=== PATIENT | male | born 1945 | race Caucasian/White ===

== ENCOUNTER 2021-06-25 16:23 | Inpatient (IN) | payer OTHER, MEDICARE ==
[~2021-06-25] VITALS: Ht 180.3 cm; Wt 100.2 kg
[~2021-06-25 16:23] MED LIST: ALBU2.5V12 NEB; AMIO200T27 PO; APIX5TAB3 PO; ASPI-1265 PO; ATOR40TA7 PO; CARB1DRO18 OP; CLON-567 PO; CYAN-51 PO; DOCU-148 PO; FLUT1DIS INH; ISOS60TA71 PO; LACT1CAP65 PO; LAMO150T6 PO; LEVE10006 PO; LEVO75TA7 PO; LOP12.5T PO; MEMA5TAB42 PO; NITR0.4T51 SL; OMEG1CAP2 PO; PROP20TA6 PO; SERT-153 PO; VIT1CAPS46 PO
[2021-06-25] MEDS ORDERED: normal saline 1000ML IV soln IVB ONE (16:45)
[2021-06-25 17:02] LABS: BASOPHILS % (AUTO) 0.3 % (0-1); EOSINOPHILS # (AUTO) 0.2 X10'3 (0-0.9); EOSINOPHILS % (AUTO) 1.2 % (0-6); HEMOGLOBIN 8.7 g/dl (14.0-17.9); LYMPHOCYTES # (AUTO) 1.1 X10'3 (1.1-4.8); LYMPHOCYTES % (AUTO) 8.6 % (21-51); MEAN CORPUSCULAR HEMOGLOBIN 26.6 PG (27.0-31.0); MEAN CORPUSCULAR HGB CONC 32.4 g/dL (33.0-36.5); MEAN CORPUSCULAR VOLUME 82.3 FL (78-98); MONOCYTES # (AUTO) 1.1 X10'3 (0-0.9); MONOCYTES % (AUTO) 8.5 % (2-12); NEUTROPHILS # (AUTO) 10.6 X10'3 (1.8-7.7); NEUTROPHILS % (AUTO) 81.4 % (42-75); PLATELET COUNT 313 X10'3 (140-440); RED BLOOD COUNT 3.28 X10'6 (4.70-6.10); RED CELL DISTRIBUTION WIDTH 16.3 % (11.5-14.5)
[2021-06-25 17:20] LABS: ALANINE AMINOTRANSFERASE 14 U/L (12-78); ALBUMIN 3.2 G/DL (3.4-5.0); ALBUMIN/GLOBULIN RATIO 0.8 (1.1-1.5); ALKALINE PHOSPHATASE 89 IU/L (46-116); ANION GAP 10 (8-16); ASPARTATE AMINO TRANSFERASE 11 U/L (10-37); BILIRUBIN,TOTAL 0.5 MG/DL (0.1-1.0); BLOOD UREA NITROGEN 21 MG/DL (7-18); BUN/CREATININE RATIO 15.3 (5.4-32.0); CALCIUM 8.9 MG/DL (8.5-10.1); CHLORIDE 103 MMOL/L (99-107); CREATININE 1.37 MG/DL (0.60-1.10); GLUCOSE 115 MG/DL (70-104); SODIUM 140 MMOL/L (135-145); TOTAL CARBON DIOXIDE 26.6 MMOL/L (24-32); TOTAL PROTEIN 7.1 G/DL (6.4-8.2); eGFR 50 ML/MIN
[2021-06-25 17:25] LABS: CLARITY,URINE SLIGHTLY CLOUDY (Clear); COLOR,URINE YELLOW (Yellow); GLUCOSE, URINE NEGATIVE (Neg); KETONES,URINE NEGATIVE (Neg); LEUKOCYTE ESTERASE ,URINE NEGATIVE (Neg); NITRITES, URINE NEGATIVE (Neg); OCCULT BLOOD,URINE NEGATIVE (Neg); PH,URINE 5.5 (4.8-8.0); PROTEIN,URINE TRACE mg/dl (Neg); UROBILINOGEN,URINE 0.2 E.U/dL (0.2-1.0)
[2021-06-25 17:27] LABS: MAGNESIUM 2.5 MG/DL (1.5-2.4)
[2021-06-25 17:28] LABS: UA COLLECTION TYPE STRAIGHT CATH
[2021-06-25 17:43] LABS: BACTERIA,URINE NONE SEEN /HPF (Neg); CAL OXALATE CRYSTALS FEW /HPF (NEGATIVE); MUCUS STRANDS FEW /LPF (Neg); RBC,URINE 0-2 /HPF (0-2); SQUAMOUS EPITHELIAL CELL,UR FEW /LPF (FEW); WBC,URINE 0-4 /HPF (0-4)
--- NOTE | 2021-06-25 18:15 | NUR ---
to ct scan via gurney with computer science instructor
[2021-06-25] MEDS ORDERED: CefTRIAXone 2gm/NS 100ml IVPB 100 ML IV ONE (19:40)
[2021-06-25] MEDS ORDERED: CefTRIAXone 2gm/D5W 50ml BAG 50 ML IV ONE (19:40)
[2021-06-25] MEDS ORDERED: temazepam 15mg capsule PO PRN (21:00)
[2021-06-25] MEDS ORDERED: HYDROcodone/acetaminophen 5mg/325mg tablet PO PRN (21:25)
[2021-06-25] MEDS ORDERED: magnesium hydroxide 30ml (MOM) UD suspension PO PRN (21:25)
[2021-06-25] MEDS ORDERED: morphine 2 MG/ML inj. syringe IV PRN (21:25)
[2021-06-25] MEDS ORDERED: ondansetron/PF 4mg/2ml inj IV PRN (21:25)
[2021-06-25] MEDS ORDERED: diphenhydrAMINE 25mg capsule PO PRN (21:25)
[2021-06-25] MEDS ORDERED: HYDROcodone/acetaminophen 10/325mg tab PO PRN (21:25)
[2021-06-25] MEDS ORDERED: ondansetron 4mg rapidly disintigrating tab PO PRN (21:25)
[2021-06-25] MEDS ORDERED: mag hydrox/Alum hydrox/simeth 30ml oral suspension PO PRN (21:25)
[2021-06-25] MEDS ORDERED: diphenhydrAMINE 50 mg/ml inj IV PRN (21:25)
[2021-06-25] MEDS ORDERED: acetaminophen 325mg tablet PO PRN ×2 (21:25)
[2021-06-25] MEDS: normal saline 1000ml 1,000 ML IV SCH (21:25)
[2021-06-25] MEDS ORDERED: bisacodyl 10mg suppository rectal RC PRN (21:25)
[2021-06-25 21:54] LABS: HEMOGLOBIN A1C 5.4 % (4.5-6.2)
[2021-06-25 21:57] LABS: CREATINE KINASE 38 U/L (39-308); LIPASE < 50 U/L (73-393); PHOSPHORUS 3.2 MG/DL (2.3-4.5)
[2021-06-25 22:14] LABS: APTT 32 SECONDS (22-32)
[2021-06-26] VITALS (8 sets, daily range): BP systolic 152–192; BP diastolic 62–92
[2021-06-26] MEDS: morphine 2 MG/ML inj. syringe IV PRN ×3 (05:29→22:25)
--- NOTE | 2021-06-26 05:33 | NUR ---
Patient passed swallow screening, advanced diet to heart healthy.
[2021-06-26 07:00] LABS: BASOPHILS % (AUTO) 0.3 % (0-1); EOSINOPHILS # (AUTO) 0.2 X10'3 (0-0.9); EOSINOPHILS % (AUTO) 1.3 % (0-6); HEMATOCRIT 27.8 % (42.0-52.0); HEMOGLOBIN 8.9 g/dl (14.0-17.9); LYMPHOCYTES % (AUTO) 7.7 % (21-51); MEAN CORPUSCULAR HEMOGLOBIN 26.2 PG (27.0-31.0); MEAN CORPUSCULAR HGB CONC 32.1 g/dL (33.0-36.5); MEAN CORPUSCULAR VOLUME 81.5 FL (78-98); MEAN PLATELET VOLUME 7.1 FL (7.4-10.4); MONOCYTES % (AUTO) 7.9 % (2-12); NEUTROPHILS # (AUTO) 10.2 X10'3 (1.8-7.7); NEUTROPHILS % (AUTO) 82.8 % (42-75); PLATELET COUNT 306 X10'3 (140-440); RED BLOOD COUNT 3.41 X10'6 (4.70-6.10); RED CELL DISTRIBUTION WIDTH 16.5 % (11.5-14.5); WHITE BLOOD COUNT 12.4 X10'3 (4.5-11.0)
[2021-06-26 07:08] LABS: ALANINE AMINOTRANSFERASE 18 U/L (12-78); ALBUMIN 3.2 G/DL (3.4-5.0); ALBUMIN/GLOBULIN RATIO 0.8 (1.1-1.5); ALKALINE PHOSPHATASE 90 IU/L (46-116); ANION GAP 7 (8-16); ASPARTATE AMINO TRANSFERASE 13 U/L (10-37); BILIRUBIN,TOTAL 0.5 MG/DL (0.1-1.0); BLOOD UREA NITROGEN 17 MG/DL (7-18); BUN/CREATININE RATIO 13.8 (5.4-32.0); CALCIUM 8.6 MG/DL (8.5-10.1); CHLORIDE 108 MMOL/L (99-107); CHOL/HDL RATIO 3.8 (0.00-4.99); CHOLESTEROL 169 MG/DL (0-200); CREATININE 1.23 MG/DL (0.60-1.10); GLUCOSE 109 MG/DL (70-104); HDL CHOLESTEROL 44 MG/DL (35-60); LDL CHOLESTEROL 100 MG/DL (50-100); SODIUM 143 MMOL/L (135-145); TOTAL PROTEIN 7.1 G/DL (6.4-8.2); TRIGLYCERIDES 123 MG/DL (20-135); eGFR 57 ML/MIN
--- NOTE | 2021-06-26 07:30 | NUR ---
Message: [phone]. Patient has elevated BP. Can you please complete med rec? Valarie PARRISH [phone]
[2021-06-26] MEDS ORDERED: docusate sod 100mg capsule PO SCH (08:00)
[2021-06-26] MEDS: pantoprazole 40mg Tablet.DR PO SCH (09:57)
--- NOTE | 2021-06-26 10:07 | NUR ---
Message: [phone]. Patient has elevated BP. Can you please complete med rec? Valarie PARRISH [id number]
[2021-06-26] MEDS ORDERED: magnesium 4gm in 100ml NS 100 ML IV PRN (10:15)
[2021-06-26] MEDS ORDERED: potassium CL 10mEq/100ml bag 100 ML IV PRN (10:15)
[2021-06-26] MEDS ORDERED: nitroGLYCERIN 0.4mg SUBLingual tab SL PRN (10:15)
[2021-06-26] MEDS ORDERED: clonazePAM 0.5mg tablet PO PRN (10:15)
[2021-06-26] MEDS ORDERED: potassium Cl 20 mEq SR tablet PO PRN ×2 (10:15)
[2021-06-26] MEDS ORDERED: magnesium Cl slow-release 64mg tablet PO PRN (10:15)
[2021-06-26] MEDS ORDERED: hydrALAZINE 20mg/ml inj. IV PRN (10:15)
[2021-06-26] MEDS ORDERED: ipratropium/albuterol 3ml nebule NEB PRN (10:20)
--- NOTE | 2021-06-26 10:54 | NUR ---
Spoke to over the phone, she is requesting patient medication for tremors and seizures be given now. Message sent to pharmacy to change administration time.
[2021-06-26] MEDS: lamoTRIgine 100mg tablet PO SCH ×3 (11:09→20:17)
[2021-06-26] MEDS: budesonide 0.5mg/2ml UD nebule IH SCH ×2 (11:10→19:59)
[2021-06-26] MEDS: albuterol 2.5 MG/3 ML nebule NEB SCH ×4 (11:10→23:40)
[2021-06-26] MEDS: atorvastatin 20mg tablet PO SCH (11:43)
[2021-06-26] MEDS: OMEGA-3/DHA/EPA/FISH OIL 1 EACH CAPSULE.DR PO SCH (11:43)
[2021-06-26] MEDS: isosorbide mononitrate 30mg tab.SR.24H PO SCH (11:43)
[2021-06-26] MEDS: memantine 5mg tablet PO SCH ×2 (11:43→20:18)
[2021-06-26] MEDS: metoprolol tartrate 25mg tablet PO SCH ×2 (11:44→20:18)
[2021-06-26] MEDS: levetiracetam 250mg tablet PO SCH ×2 (11:44→20:18)
[2021-06-26] MEDS: sertraline 50mg tablet PO SCH (11:44)
[2021-06-26] MEDS: ascorbic acid 500mg tablet PO SCH (11:44)
[2021-06-26] MEDS: cyanocobalamin 500mcg tablet PO SCH (11:44)
[2021-06-26] MEDS: aspirin 81mg tab.chew PO SCH (11:45)
[2021-06-26] MEDS: apixaban 5mg tablet PO SCH ×2 (11:45→20:18)
[2021-06-26] MEDS: amiodarone 200mg tablet PO SCH (11:45)
--- NOTE | 2021-06-26 12:34 | NUR ---
Spoke to regarding patient's home medications. She requested they be given as soon as possible. They have now been administered. Tried calling to inform her, line was busy.
--- NOTE | 2021-06-26 14:08 | NUR ---
Attempted to call to complete admission questions, no call back. This is my second time attempting to get a hold of her.
--- NOTE | 2021-06-26 14:16 | NUR ---
RT paged for respiratory treatment.
--- NOTE | 2021-06-26 15:29 | NUR ---
Spoke to [id number] Patsy and updated her on patient's plan of care. She said she will update on care.
--- NOTE | 2021-06-26 17:24 | NUR ---
Message: [phone]. Requested wound care consult. Patient has redness/open area on right 5th toe. Valarie PARRISH [id number]
--- NOTE | 2021-06-26 17:42 | NUR ---
Message: [id number]. Patient is becoming agitated/combative. Can we get Ativan orders? Valarie PARRISH [id number]
[2021-06-26] MEDS ORDERED: haloperidol lactate 5mg/ml inj IM ONE (17:55)
--- NOTE | 2021-06-26 18:03 | NUR ---
Patient was given one time order of IM haldol as he was becoming combative/agitated. He is pulling his leads out and does not allow me to get close to him. and daughter were notified over the phone. Dr. Tucker is aware.
--- NOTE | 2021-06-26 18:33 | NUR ---
Problems reprioritized. Patient report given, questions answered & plan of care reviewed with Nguyen PARRISH.
[2021-06-26] MEDS ORDERED: non-formulary drug (Propranolol Hcl 1 TAB) PO SCH (20:00)
[2021-06-26] MEDS: K and/or MAG REPLACEMENT MC SCH (20:00)
[2021-06-26] MEDS: PEG 400/HYPROMELLOSE/GLYCERIN 15ml bottle EACHEYE SCH (20:17)
[2021-06-26] MEDS: lactobacillus rhamnosus 10,000 MMU CELLS/CAPSULE PO SCH (20:18)
[2021-06-26] MEDS: docusate sod 100mg capsule PO SCH (20:19)
[2021-06-27 01:19] VITALS: BP 138/62
[2021-06-27 02:00] VITALS: BP 150/74
[2021-06-27] MEDS: LORazepam 2 mg/ml vial IV PRN ×2 (06:05→09:49)
[2021-06-27 06:06] LABS: BASOPHILS % (AUTO) 0.4 % (0-1); EOSINOPHILS # (AUTO) 0.1 X10'3 (0-0.9); EOSINOPHILS % (AUTO) 1.2 % (0-6); HEMATOCRIT 26.9 % (42.0-52.0); HEMOGLOBIN 8.6 g/dl (14.0-17.9); LYMPHOCYTES % (AUTO) 9.8 % (21-51); MEAN CORPUSCULAR HEMOGLOBIN 26.1 PG (27.0-31.0); MEAN CORPUSCULAR VOLUME 81.6 FL (78-98); MEAN PLATELET VOLUME 7.1 FL (7.4-10.4); MONOCYTES # (AUTO) 0.8 X10'3 (0-0.9); MONOCYTES % (AUTO) 7.8 % (2-12); NEUTROPHILS # (AUTO) 8.2 X10'3 (1.8-7.7); NEUTROPHILS % (AUTO) 80.8 % (42-75); PLATELET COUNT 295 X10'3 (140-440); RED BLOOD COUNT 3.29 X10'6 (4.70-6.10); RED CELL DISTRIBUTION WIDTH 16.7 % (11.5-14.5); WHITE BLOOD COUNT 10.2 X10'3 (4.5-11.0)
[2021-06-27 06:33] LABS: ALANINE AMINOTRANSFERASE 14 U/L (12-78); ALBUMIN 2.9 G/DL (3.4-5.0); ALBUMIN/GLOBULIN RATIO 0.7 (1.1-1.5); ALKALINE PHOSPHATASE 80 IU/L (46-116); ANION GAP 13 (8-16); ASPARTATE AMINO TRANSFERASE 15 U/L (10-37); BILIRUBIN,TOTAL 0.6 MG/DL (0.1-1.0); BLOOD UREA NITROGEN 18 MG/DL (7-18); BUN/CREATININE RATIO 14.4 (5.4-32.0); CALCIUM 8.6 MG/DL (8.5-10.1); CHLORIDE 105 MMOL/L (99-107); CREATININE 1.25 MG/DL (0.60-1.10); GLUCOSE 108 MG/DL (70-104); MAGNESIUM 2.2 MG/DL (1.5-2.4); PHOSPHORUS 3.2 MG/DL (2.3-4.5); POTASSIUM 3.9 MMOL/L (3.5-5.1); SODIUM 142 MMOL/L (135-145); TOTAL CARBON DIOXIDE 24.2 MMOL/L (24-32); TOTAL PROTEIN 6.9 G/DL (6.4-8.2); eGFR 56 ML/MIN
[2021-06-27] MEDS: K and/or MAG REPLACEMENT MC SCH ×2 (08:00→20:00)
[2021-06-27] MEDS ORDERED: non-formulary drug (Fluticasone/Salmeterol (Advair 100-50 Diskus) 1 PUFFS) INH SCH (08:00)
[2021-06-27] MEDS: OMEGA-3/DHA/EPA/FISH OIL 1 EACH CAPSULE.DR PO SCH (08:07)
[2021-06-27] MEDS: lactobacillus rhamnosus 10,000 MMU CELLS/CAPSULE PO SCH ×2 (08:08→22:13)
[2021-06-27] MEDS: memantine 5mg tablet PO SCH ×2 (08:08→22:14)
[2021-06-27] MEDS: levetiracetam 250mg tablet PO SCH ×2 (08:08→22:14)
[2021-06-27] MEDS: amiodarone 200mg tablet PO SCH (08:09)
[2021-06-27] MEDS: apixaban 5mg tablet PO SCH ×2 (08:09→22:14)
[2021-06-27] MEDS: atorvastatin 20mg tablet PO SCH (08:09)
[2021-06-27] MEDS: isosorbide mononitrate 30mg tab.SR.24H PO SCH (08:09)
[2021-06-27] MEDS: aspirin 81mg tab.chew PO SCH (08:09)
[2021-06-27] MEDS: docusate sod 100mg capsule PO SCH ×2 (08:09→22:13)
[2021-06-27] MEDS: levoTHYROXINE 75mcg tablet PO SCH (08:09)
[2021-06-27] MEDS: ascorbic acid 500mg tablet PO SCH (08:09)
[2021-06-27] MEDS: lamoTRIgine 100mg tablet PO SCH ×2 (08:10→22:14)
[2021-06-27] MEDS: pantoprazole 40mg Tablet.DR PO SCH (08:10)
[2021-06-27] MEDS: cyanocobalamin 500mcg tablet PO SCH (08:10)
[2021-06-27] MEDS: metoprolol tartrate 25mg tablet PO SCH ×2 (08:19→20:00)
[2021-06-27] MEDS: sertraline 50mg tablet PO SCH (08:21)
[2021-06-27] MEDS: PEG 400/HYPROMELLOSE/GLYCERIN 15ml bottle EACHEYE SCH ×2 (08:49→22:14)
[2021-06-27] MEDS: budesonide 0.5mg/2ml UD nebule IH SCH ×2 (10:01→19:14)
[2021-06-27] MEDS: albuterol 2.5 MG/3 ML nebule NEB SCH ×3 (10:01→19:13)
[2021-06-27] MEDS ORDERED: iohexol 350MG/ML 100ml bottle IV ONE (11:33)
--- NOTE | 2021-06-27 13:17 | NUR ---
PRESSURE ULCER EDUCATION: DEFINITION: A pressure ulcer is an area of skin that breaks down when you stay in one position too long. The constant pressure against the skin reduces the blood flow to that area and the affected tissue dies. CAUSES: "Being bedridden or in a wheelchair "Fragile skin "Having a chronic condition, such as diabetes or vascular disease "Inability to move certain parts of your body without assistance "Older age "Incontinence of urine or stool SYMPTOMS: "A reddened area that DOES NOT turn white when pressed on - this can be the beginning of a pressure ulcer "A blister, deep sore or a crater - these can be advanced pressure ulcers FIRST AID: "Relieve the pressure on this area "Keep the area clean and dry "Call your primary doctor if you see any of the above symptoms "DO NOT massage the area "DO NOT use a donut shaped or ring shaped pillow- these actually interfere with the blood flow and cause complications PREVENTION: "Check for pressure ulcers everyday "Change position at least every two hours to relieve pressure "Use items that help relieve pressure- pillows, sheepskin, foam padding, and powders. "Keep skin clean and dry "Eat healthy well balanced meals "Exercise daily IF YOU SEE ANY OF THESE SYMPTOMS WHILE IN THE HOSPITAL - TELL YOUR NURSE IMMEDIATELY. IF YOU SEE ANY OF THESE SYMPTOMS WHILE AT HOME OR HAVE ANY QUESTIONS OR CONCERNS ABOUT PRESSURE ULCERS - CALL YOUR PRIMARY DOCTOR IMMEDIATELY. Addendum: 06/27/21 at 1317 by Maria Eugenia Simpson LVN Amended: Links added.
[2021-06-27 15:00] VITALS: BP 139/52
--- NOTE | 2021-06-27 16:35 | NUR ---
Message: [id number]. Can I get straight cath orders? Patient having trouble voiding, bladder scan is 350 ml. Valarie PARRISH [phone]
[2021-06-27 18:00] VITALS: BP 142/67
--- NOTE | 2021-06-27 18:41 | NUR ---
Problems reprioritized. Patient report given, questions answered & plan of care reviewed with Nguyen PARRISH.
[2021-06-27 22:00] VITALS: BP 123/104
[2021-06-27] MEDS: normal saline 1000ml 1,000 ML IV SCH (22:21)
[2021-06-28] MEDS: albuterol 2.5 MG/3 ML nebule NEB SCH ×2 (01:10→09:01)
[2021-06-28 02:00] VITALS: BP 137/61
[2021-06-28] MEDS: morphine 2 MG/ML inj. syringe IV PRN (03:17)
[2021-06-28 05:59] LABS: BASOPHILS % (AUTO) 0.3 % (0-1); EOSINOPHILS # (AUTO) 0.2 X10'3 (0-0.9); EOSINOPHILS % (AUTO) 1.6 % (0-6); HEMOGLOBIN 8.4 g/dl (14.0-17.9); LYMPHOCYTES # (AUTO) 0.9 X10'3 (1.1-4.8); LYMPHOCYTES % (AUTO) 8.9 % (21-51); MEAN CORPUSCULAR HEMOGLOBIN 26.4 PG (27.0-31.0); MEAN CORPUSCULAR HGB CONC 32.3 g/dL (33.0-36.5); MEAN CORPUSCULAR VOLUME 81.6 FL (78-98); MEAN PLATELET VOLUME 7.2 FL (7.4-10.4); MONOCYTES # (AUTO) 0.9 X10'3 (0-0.9); MONOCYTES % (AUTO) 8.7 % (2-12); NEUTROPHILS # (AUTO) 8.5 X10'3 (1.8-7.7); NEUTROPHILS % (AUTO) 80.5 % (42-75); PLATELET COUNT 321 X10'3 (140-440); RED BLOOD COUNT 3.19 X10'6 (4.70-6.10); RED CELL DISTRIBUTION WIDTH 16.5 % (11.5-14.5); WHITE BLOOD COUNT 10.6 X10'3 (4.5-11.0)
[2021-06-28 06:00] VITALS: BP 147/67
[2021-06-28 06:28] LABS: ALANINE AMINOTRANSFERASE 13 U/L (12-78); ALBUMIN 2.8 G/DL (3.4-5.0); ALBUMIN/GLOBULIN RATIO 0.7 (1.1-1.5); ALKALINE PHOSPHATASE 77 IU/L (46-116); ANION GAP 10 (8-16); ASPARTATE AMINO TRANSFERASE 13 U/L (10-37); BILIRUBIN,TOTAL 0.4 MG/DL (0.1-1.0); BLOOD UREA NITROGEN 26 MG/DL (7-18); BUN/CREATININE RATIO 17.9 (5.4-32.0); CALCIUM 8.6 MG/DL (8.5-10.1); CHLORIDE 106 MMOL/L (99-107); CREATININE 1.45 MG/DL (0.60-1.10); GLUCOSE 93 MG/DL (70-104); MAGNESIUM 2.6 MG/DL (1.5-2.4); PHOSPHORUS 4.1 MG/DL (2.3-4.5); POTASSIUM 4.2 MMOL/L (3.5-5.1); SODIUM 143 MMOL/L (135-145); TOTAL CARBON DIOXIDE 26.6 MMOL/L (24-32); TOTAL PROTEIN 6.9 G/DL (6.4-8.2); eGFR 47 ML/MIN
--- NOTE | 2021-06-28 06:38 | NUR ---
Patient in room PCU 3025. I have received report from SHIVANI Cedillo and had the opportunity to ask questions and assume patient care.
[2021-06-28] MEDS: K and/or MAG REPLACEMENT MC SCH (08:00)
[2021-06-28] MEDS: cyanocobalamin 500mcg tablet PO SCH (08:24)
[2021-06-28] MEDS: levoTHYROXINE 75mcg tablet PO SCH (08:24)
[2021-06-28] MEDS: isosorbide mononitrate 30mg tab.SR.24H PO SCH (08:24)
[2021-06-28] MEDS: aspirin 81mg tab.chew PO SCH (08:24)
[2021-06-28] MEDS: lamoTRIgine 100mg tablet PO SCH (08:24)
[2021-06-28] MEDS: ascorbic acid 500mg tablet PO SCH (08:24)
[2021-06-28] MEDS: OMEGA-3/DHA/EPA/FISH OIL 1 EACH CAPSULE.DR PO SCH (08:24)
[2021-06-28] MEDS: lactobacillus rhamnosus 10,000 MMU CELLS/CAPSULE PO SCH (08:24)
[2021-06-28] MEDS: memantine 5mg tablet PO SCH (08:24)
[2021-06-28] MEDS: metoprolol tartrate 25mg tablet PO SCH (08:25)
[2021-06-28] MEDS: amiodarone 200mg tablet PO SCH (08:25)
[2021-06-28] MEDS: docusate sod 100mg capsule PO SCH (08:25)
[2021-06-28] MEDS: pantoprazole 40mg Tablet.DR PO SCH (08:25)
[2021-06-28] MEDS: apixaban 5mg tablet PO SCH (08:25)
[2021-06-28] MEDS: levetiracetam 250mg tablet PO SCH (08:25)
[2021-06-28] MEDS: atorvastatin 20mg tablet PO SCH (08:25)
[2021-06-28] MEDS: sertraline 50mg tablet PO SCH (08:25)
[2021-06-28] MEDS: PEG 400/HYPROMELLOSE/GLYCERIN 15ml bottle EACHEYE SCH (08:26)
[2021-06-28] MEDS: budesonide 0.5mg/2ml UD nebule IH SCH (09:01)
[2021-06-28 11:00] VITALS: BP 122/58
[2021-06-28 15:00] VITALS: BP 132/67
--- NOTE | 2021-06-28 15:50 | NUR ---
Report called to Fannie PARRISH at [facility].
== END 2021-06-28 15:44 | DRG 884 ==
LOC: ER 16:24 → PCU 3S 21:30
PROVIDERS: ADMIT Family Medicine; ATTEND Family Medicine
PROC: B3251ZZ Computerized Tomography (CT Scan) of Bilateral Common Carotid Arteries using Low Osmolar Contrast (ICD-10-PCS; principal; 2021-06-27)
PROC: B32G1ZZ Computerized Tomography (CT Scan) of Bilateral Vertebral Arteries using Low Osmolar Contrast (ICD-10-PCS; 2021-06-27)
PROC: B32R1ZZ Computerized Tomography (CT Scan) of Intracranial Arteries using Low Osmolar Contrast (ICD-10-PCS; 2021-06-27)
PROC: B3281ZZ Computerized Tomography (CT Scan) of Bilateral Internal Carotid Arteries using Low Osmolar Contrast (ICD-10-PCS; 2021-06-27)
DX: F03.91 Unspecified dementia, unspecified severity, with behavioral disturbance (principal); I50.23 Acute on chronic systolic (congestive) heart failure; N17.9 Acute kidney failure, unspecified; I13.0 Hypertensive heart and chronic kidney disease with heart failure and stage 1 through stage 4 chronic kidney disease, or unspecified chronic kidney disease; R44.3 Hallucinations, unspecified; F05 Delirium due to known physiological condition; I25.10 Atherosclerotic heart disease of native coronary artery without angina pectoris; E78.5 Hyperlipidemia, unspecified; G40.909 Epilepsy, unspecified, not intractable, without status epilepticus; E03.9 Hypothyroidism, unspecified; D64.9 Anemia, unspecified; G62.9 Polyneuropathy, unspecified; Z20.822 Contact with and (suspected) exposure to COVID-19; R25.1 Tremor, unspecified; R47.81 Slurred speech; E78.00 Pure hypercholesterolemia, unspecified; J32.4 Chronic pansinusitis; N18.30 Chronic kidney disease, stage 3 unspecified; Z86.73 Personal history of transient ischemic attack (TIA), and cerebral infarction without residual deficits; I25.2 Old myocardial infarction; Z87.442 Personal history of urinary calculi; Z95.1 Presence of aortocoronary bypass graft; Z95.810 Presence of automatic (implantable) cardiac defibrillator; Z88.8 Allergy status to other drugs, medicaments and biological substances; Z79.899 Other long term (current) drug therapy
CPT/HCPCS: 36415; 70450; 70496; 70498; 71045; 80053; 80061; 81001; 82550; 83036; 83605; 83690; 83735; 83880; 84100; 84145; 84443; 84484; 85025; 85610; 85730; 87040; 87081; 87635; 92508; 92616; 93005; 93306; 94640; 94760; 96361; 96365; 97110; 97161; 97530; 97535; 99285; G0378; J0360; J0696; J1630; J2060; J2270; J2405; J7030; Q9967

== ENCOUNTER 2021-10-09 12:21 | Emergency (ER) | payer OTHER, MEDICARE ==
[~2021-10-09] VITALS: Ht 180.3 cm; Wt 98.0 kg
[~2021-10-09 12:21] MED LIST changes: -PROP20TA6 PO
--- NOTE | 2021-10-09 12:45 | NUR ---
ELIAS [phone]
--- NOTE | 2021-10-09 13:36 | NUR ---
received 76yr old male from ems, awake, alert and orientedx3. On room air, no form ofdistress. Brought in with c/o severe weakness post work-out. He currently states that hes "feeling ok". vitals are stable. Safety maintained. Treatments/procedures in progress as ordered. Will continue to monitor.
[2021-10-09 13:39] LABS: BASOPHILS # (AUTO) 0.1 X10'3 (0-0.2); BASOPHILS % (AUTO) 0.9 % (0-1); EOSINOPHILS # (AUTO) 0.3 X10'3 (0-0.9); EOSINOPHILS % (AUTO) 2.6 % (0-6); HEMATOCRIT 39.6 % (42.0-52.0); HEMOGLOBIN 12.7 g/dl (14.0-17.9); LYMPHOCYTES # (AUTO) 1.8 X10'3 (1.1-4.8); MEAN CORPUSCULAR HEMOGLOBIN 25.8 PG (27.0-31.0); MEAN CORPUSCULAR VOLUME 80.7 FL (78-98); MEAN PLATELET VOLUME 7.3 FL (7.4-10.4); MONOCYTES # (AUTO) 0.8 X10'3 (0-0.9); MONOCYTES % (AUTO) 7.7 % (2-12); NEUTROPHILS # (AUTO) 7.1 X10'3 (1.8-7.7); NEUTROPHILS % (AUTO) 70.8 % (42-75); PLATELET COUNT 230 X10'3 (140-440); RED BLOOD COUNT 4.91 X10'6 (4.70-6.10); RED CELL DISTRIBUTION WIDTH 21.4 % (11.5-14.5)
[2021-10-09 13:44] LABS: ABG BASE EXCESS -1.5 mmol/L (-2.0-2.0); ABG HCO3 22.6 mmol/L (22.0-26.0); ABG OXYGEN SATURATION 94.7 % (94-97); ABG PCO2 (T) 36.3 mmHg (35.0-48.0); ABG PO2 (T) 76.4 mmHg (75.0-100.0); ALLEN'S TEST POSITIVE; FCOHb 0.3 % (0.0-3.9); FMetHb 0.1 % (0.0-1.5); FO2Hb 94.3 % (94-97); TOTAL HEMOGLOBIN 13.2 G/dl (14.0-18.0)
[2021-10-09 13:52] LABS: ALANINE AMINOTRANSFERASE 23 U/L (12-78); ALBUMIN 3.3 G/DL (3.4-5.0); ALBUMIN/GLOBULIN RATIO 0.9 (1.1-1.5); ALKALINE PHOSPHATASE 108 IU/L (46-116); ANION GAP 5 (8-16); ASPARTATE AMINO TRANSFERASE 15 U/L (10-37); BILIRUBIN,TOTAL 0.4 MG/DL (0.1-1.0); BLOOD UREA NITROGEN 21 MG/DL (7-18); BUN/CREATININE RATIO 14.9 (5.4-32.0); CALCIUM 8.7 MG/DL (8.5-10.1); CHLORIDE 108 MMOL/L (99-107); CREATININE 1.41 MG/DL (0.60-1.10); GLUCOSE 102 MG/DL (70-104); POTASSIUM 4.7 MMOL/L (3.5-5.1); SODIUM 142 MMOL/L (135-145); TOTAL PROTEIN 7.1 G/DL (6.4-8.2); eGFR 49 ML/MIN
[2021-10-09 14:19] LABS: ANISOCYTOSIS 3+; PLATELET ESTIMATE NORMAL
[2021-10-09 14:49] VITALS: BP 179/98
== END 2021-10-09 16:44 | disposition home or self-care (01) ==
LOC: ER 12:22
DX: R53.1 Weakness (principal); F13.20 Sedative, hypnotic or anxiolytic dependence, uncomplicated; I13.0 Hypertensive heart and chronic kidney disease with heart failure and stage 1 through stage 4 chronic kidney disease, or unspecified chronic kidney disease; E11.22 Type 2 diabetes mellitus with diabetic chronic kidney disease; N18.9 Chronic kidney disease, unspecified; Z79.84 Long term (current) use of oral hypoglycemic drugs; E78.00 Pure hypercholesterolemia, unspecified; F03.90 Unspecified dementia, unspecified severity, without behavioral disturbance, psychotic disturbance, mood disturbance, and anxiety; E03.9 Hypothyroidism, unspecified; Z88.5 Allergy status to narcotic agent; Z79.899 Other long term (current) drug therapy; Z79.82 Long term (current) use of aspirin; Z79.2 Long term (current) use of antibiotics
CPT/HCPCS: 36415; 36600; 70450; 71045; 80053; 82803; 83605; 84145; 84484; 85008; 85018; 85025; 87040; 93005; 99285

== ENCOUNTER 2022-02-04 16:09 | Inpatient (IN) | payer OTHER, MEDICARE ==
[~2022-02-04] VITALS: Ht 180.3 cm; Wt 105.0 kg
[~2022-02-04 16:09] MED LIST changes: -LEVE10006 PO; +LISI20TA28 PO; -LOP12.5T PO
[2022-02-04 16:53] LABS: BASOPHILS # (AUTO) 0.1 X10'3 (0-0.2); BASOPHILS % (AUTO) 0.4 % (0-1); EOSINOPHILS # (AUTO) 0.2 X10'3 (0-0.9); EOSINOPHILS % (AUTO) 1.6 % (0-6); HEMATOCRIT 42.8 % (42.0-52.0); HEMOGLOBIN 13.9 g/dl (14.0-17.9); LYMPHOCYTES # (AUTO) 1.7 X10'3 (1.1-4.8); LYMPHOCYTES % (AUTO) 12.9 % (21-51); MEAN CORPUSCULAR HGB CONC 32.4 g/dL (33.0-36.5); MEAN CORPUSCULAR VOLUME 83.3 FL (78-98); MEAN PLATELET VOLUME 7.3 FL (7.4-10.4); MONOCYTES % (AUTO) 7.8 % (2-12); NEUTROPHILS # (AUTO) 10.3 X10'3 (1.8-7.7); NEUTROPHILS % (AUTO) 77.3 % (42-75); PLATELET COUNT 251 X10'3 (140-440); RED BLOOD COUNT 5.15 X10'6 (4.70-6.10); RED CELL DISTRIBUTION WIDTH 17.6 % (11.5-14.5); WHITE BLOOD COUNT 13.3 X10'3 (4.5-11.0)
[2022-02-04 17:04] LABS: APTT 31 SECONDS (22-32)
[2022-02-04 17:08] LABS: ALANINE AMINOTRANSFERASE 9 U/L (12-78); ALBUMIN 3.6 G/DL (3.4-5.0); ALBUMIN/GLOBULIN RATIO 0.9 (1.1-1.5); ALKALINE PHOSPHATASE 126 IU/L (46-116); ANION GAP 11 (8-16); ASPARTATE AMINO TRANSFERASE 18 U/L (10-37); BLOOD UREA NITROGEN 15 MG/DL (7-18); BUN/CREATININE RATIO 11.5 (5.4-32.0); CALCIUM 9.3 MG/DL (8.5-10.1); CHLORIDE 104 MMOL/L (99-107); GLUCOSE 114 MG/DL (70-104); POTASSIUM 4.4 MMOL/L (3.5-5.1); SODIUM 141 MMOL/L (135-145); TOTAL CARBON DIOXIDE 25.7 MMOL/L (24-32); TOTAL PROTEIN 7.4 G/DL (6.4-8.2); eGFR 53 ML/MIN
[2022-02-04 19:34] LABS: CLARITY,URINE CLEAR (Clear); COLOR,URINE YELLOW (Yellow); GLUCOSE, URINE NEGATIVE (Neg); KETONES,URINE NEGATIVE (Neg); LEUKOCYTE ESTERASE ,URINE NEGATIVE (Neg); NITRITES, URINE NEGATIVE (Neg); OCCULT BLOOD,URINE NEGATIVE (Neg); PH,URINE 6.5 (4.8-8.0); PROTEIN,URINE 100 mg/dl (Neg); UROBILINOGEN,URINE 0.2 E.U/dL (0.2-1.0)
[2022-02-04 19:37] LABS: UA COLLECTION TYPE NON-SPECIFIED
[2022-02-04 19:40] LABS: BACTERIA,URINE FEW /HPF (Neg); RBC,URINE 0-2 /HPF (0-2)
[2022-02-04 19:41] LABS: MUCUS STRANDS FEW /LPF (Neg); SQUAMOUS EPITHELIAL CELL,UR FEW /LPF (FEW); TRANSITIONAL EPI CELLS,URINE FEW /HPF
[2022-02-04] MEDS ORDERED: diphenhydrAMINE 50 mg/ml inj IV PRN (20:55)
[2022-02-04] MEDS ORDERED: acetaminophen 325mg tablet PO PRN (20:55)
[2022-02-04] MEDS ORDERED: HYDROcodone/acetaminophen 10/325mg tab PO PRN (20:55)
[2022-02-04] MEDS ORDERED: HYDROcodone/acetaminophen 5mg/325mg tablet PO PRN (20:55)
[2022-02-04] MEDS ORDERED: mag hydrox/Alum hydrox/simeth 30ml oral suspension PO PRN (20:55)
[2022-02-04] MEDS ORDERED: morphine 2 MG/ML inj. syringe IV PRN ×2 (20:55)
[2022-02-04] MEDS ORDERED: acetaminophen 650mg rectal suppository RC PRN (20:55)
[2022-02-04] MEDS ORDERED: HYDROmorphone inj. 0.5 MG/0.5 ML DISP.SYRIN IV PRN (20:55)
[2022-02-04] MEDS ORDERED: bisacodyl 10mg suppository rectal RC PRN (20:55)
[2022-02-04] MEDS ORDERED: ondansetron/PF 4mg/2ml inj IV PRN (20:55)
[2022-02-04] MEDS: normal saline 1000ml 1,000 ML IV SCH (21:37)
[2022-02-04 22:12] LABS: APTT 28 SECONDS (22-32)
[2022-02-04 22:25] LABS: CREATINE KINASE 33 U/L (39-308); LIPASE 103 U/L (73-393); PHOSPHORUS 3.2 MG/DL (2.3-4.5)
--- NOTE | 2022-02-04 23:16 | NUR ---
ATTEMPTED TO CALL DAUGHTER TO OBTAIN MEDICATION LIST FOR PT. VOICEMAIL REACHED, AND A MESSAGE WAS LEFT. WILL ATTEMPT TO CALL AGAIN LATER.
[2022-02-05] MEDS: magnesium hydroxide 30ml (MOM) UD suspension PO PRN (03:59)
--- NOTE | 2022-02-05 06:47 | NUR ---
Patient in room ED 13. I have received report from Roya RN and had the opportunity to ask questions and assume patient care.
[2022-02-05 06:52] LABS: BASOPHILS # (AUTO) 0.1 X10'3 (0-0.2); BASOPHILS % (AUTO) 0.7 % (0-1); EOSINOPHILS # (AUTO) 0.2 X10'3 (0-0.9); EOSINOPHILS % (AUTO) 1.9 % (0-6); HEMATOCRIT 41.8 % (42.0-52.0); LYMPHOCYTES # (AUTO) 1.8 X10'3 (1.1-4.8); MEAN CORPUSCULAR HEMOGLOBIN 27.7 PG (27.0-31.0); MEAN CORPUSCULAR HGB CONC 33.4 g/dL (33.0-36.5); MEAN PLATELET VOLUME 7.2 FL (7.4-10.4); MONOCYTES # (AUTO) 0.9 X10'3 (0-0.9); MONOCYTES % (AUTO) 7.5 % (2-12); NEUTROPHILS % (AUTO) 74.9 % (42-75); PLATELET COUNT 229 X10'3 (140-440); RED BLOOD COUNT 5.04 X10'6 (4.70-6.10); RED CELL DISTRIBUTION WIDTH 17.3 % (11.5-14.5)
[2022-02-05 07:04] LABS: ALANINE AMINOTRANSFERASE 14 U/L (12-78); ALBUMIN 3.6 G/DL (3.4-5.0); ALKALINE PHOSPHATASE 134 IU/L (46-116); ANION GAP 9 (8-16); ASPARTATE AMINO TRANSFERASE 18 U/L (10-37); BILIRUBIN,TOTAL 1.2 MG/DL (0.1-1.0); BLOOD UREA NITROGEN 17 MG/DL (7-18); BUN/CREATININE RATIO 12.4 (5.4-32.0); CALCIUM 9.3 MG/DL (8.5-10.1); CHLORIDE 103 MMOL/L (99-107); CREATININE 1.37 MG/DL (0.60-1.10); GLUCOSE 113 MG/DL (70-104); POTASSIUM 4.2 MMOL/L (3.5-5.1); SODIUM 140 MMOL/L (135-145); TOTAL CARBON DIOXIDE 27.9 MMOL/L (24-32); TOTAL PROTEIN 7.3 G/DL (6.4-8.2); eGFR 50 ML/MIN
[2022-02-05] MEDS: pantoprazole 40mg Tablet.DR PO SCH (07:30)
[2022-02-05] MEDS: CefTRIAXone/D5W-Rocephin 1gm 50 ML IV SCH (08:00)
[2022-02-05] MEDS: docusate sod 100mg capsule PO SCH ×3 (08:57→20:46)
--- NOTE | 2022-02-05 08:57 | NUR ---
Can you guys please send up this Pts [phone] PROTONIX GTT & [phone] ROCEPHIN GTT. The Pt came up from ER. Thank you, Alyssia sheets ext [phone]
[2022-02-05] MEDS: heparin, porcine 5000 units/ml vial SQ SCH ×2 (08:58→20:46)
[2022-02-05 11:00] VITALS: BP 176/87
--- NOTE | 2022-02-05 11:44 | NUR ---
PAGER ID: [phone] MESSAGE: Oumar Cai [id number] asking about taking home med CLONAZEPAM 0.5MG . Home med rec complete. -Alyssia Peguero [phone]
--- NOTE | 2022-02-05 12:37 | NUR ---
Pts son Baldomero called. # [phone]
[2022-02-05 15:00] VITALS: BP 162/80
[2022-02-05] MEDS ORDERED: clonazePAM 0.5mg tablet PO PRN (17:55)
[2022-02-05] MEDS ORDERED: nitroGLYCERIN 0.4mg SUBLingual tab SL PRN (17:55)
--- NOTE | 2022-02-05 18:41 | NUR ---
Problems reprioritized. Patient report given, questions answered & plan of care reviewed with Nabeel PARRISH.
[2022-02-05] MEDS ORDERED: albuterol 2.5 MG/3 ML nebule NEB PRN (19:30)
[2022-02-05] MEDS ORDERED: LEVE10006 PO (19:44)
[2022-02-05] MEDS ORDERED: POLY80 OP SCH (20:00)
[2022-02-05] MEDS ORDERED: CARBOXYMETHYL OP SCH (20:00)
[2022-02-05] MEDS ORDERED: GLY OP SCH (20:00)
[2022-02-05] MEDS: lactobacillus rhamnosus 10,000 MMU CELLS/CAPSULE PO SCH (20:46)
[2022-02-05] MEDS: apixaban 5mg tablet PO SCH (20:47)
[2022-02-05] MEDS: clonazePAM 0.5mg tablet PO SCH (21:00)
[2022-02-05] MEDS: albuterol 2.5 MG/3 ML nebule NEB SCH (21:00)
[2022-02-05] MEDS: lamoTRIgine 100mg tablet PO SCH (21:13)
[2022-02-05] MEDS: lamoTRIgine 25mg tablet PO SCH (21:14)
[2022-02-05] MEDS: memantine 5mg tablet PO SCH (21:14)
[2022-02-06] MEDS: albuterol 2.5 MG/3 ML nebule NEB SCH ×4 (03:10→21:23)
[2022-02-06 06:38] LABS: BASOPHILS # (AUTO) 0.1 X10'3 (0-0.2); BASOPHILS % (AUTO) 0.6 % (0-1); EOSINOPHILS # (AUTO) 0.2 X10'3 (0-0.9); EOSINOPHILS % (AUTO) 1.7 % (0-6); HEMATOCRIT 42.2 % (42.0-52.0); HEMOGLOBIN 13.7 g/dl (14.0-17.9); LYMPHOCYTES # (AUTO) 1.5 X10'3 (1.1-4.8); LYMPHOCYTES % (AUTO) 15.9 % (21-51); MEAN CORPUSCULAR HEMOGLOBIN 27.9 PG (27.0-31.0); MEAN CORPUSCULAR HGB CONC 32.6 g/dL (33.0-36.5); MEAN CORPUSCULAR VOLUME 85.7 FL (78-98); MEAN PLATELET VOLUME 7.6 FL (7.4-10.4); MONOCYTES # (AUTO) 0.8 X10'3 (0-0.9); MONOCYTES % (AUTO) 8.7 % (2-12); NEUTROPHILS % (AUTO) 73.1 % (42-75); PLATELET COUNT 181 X10'3 (140-440); RED BLOOD COUNT 4.92 X10'6 (4.70-6.10); RED CELL DISTRIBUTION WIDTH 17.9 % (11.5-14.5); WHITE BLOOD COUNT 9.5 X10'3 (4.5-11.0)
[2022-02-06 06:45] LABS: ALANINE AMINOTRANSFERASE 15 U/L (12-78); ALBUMIN 3.1 G/DL (3.4-5.0); ALBUMIN/GLOBULIN RATIO 0.8 (1.1-1.5); ALKALINE PHOSPHATASE 123 IU/L (46-116); ANION GAP 12 (8-16); ASPARTATE AMINO TRANSFERASE 36 U/L (10-37); BILIRUBIN,TOTAL 1.2 MG/DL (0.1-1.0); BLOOD UREA NITROGEN 17 MG/DL (7-18); BUN/CREATININE RATIO 14.2 (5.4-32.0); CALCIUM 8.7 MG/DL (8.5-10.1); CHLORIDE 103 MMOL/L (99-107); GLUCOSE 88 MG/DL (70-104); POTASSIUM 4.6 MMOL/L (3.5-5.1); SODIUM 136 MMOL/L (135-145); TOTAL CARBON DIOXIDE 20.9 MMOL/L (24-32); TOTAL PROTEIN 6.8 G/DL (6.4-8.2); eGFR 59 ML/MIN
[2022-02-06 07:00] VITALS: BP 194/93
[2022-02-06] MEDS: memantine 5mg tablet PO SCH ×2 (07:49→19:44)
[2022-02-06] MEDS: clonazePAM 0.5mg tablet PO SCH ×4 (07:50→19:46)
[2022-02-06] MEDS: isosorbide mononitrate 30mg tab.SR.24H PO SCH (07:50)
[2022-02-06] MEDS: amiodarone 200mg tablet PO SCH (07:50)
[2022-02-06] MEDS: OMEGA-3/DHA/EPA/FISH OIL 1 EACH CAPSULE.DR PO SCH (07:50)
[2022-02-06] MEDS: pantoprazole 40mg Tablet.DR PO SCH (07:50)
[2022-02-06] MEDS: lamoTRIgine 25mg tablet PO SCH ×2 (07:50→19:44)
[2022-02-06] MEDS: lactobacillus rhamnosus 10,000 MMU CELLS/CAPSULE PO SCH ×2 (07:50→19:45)
[2022-02-06] MEDS: atorvastatin 20mg tablet PO SCH (07:51)
[2022-02-06] MEDS: apixaban 5mg tablet PO SCH ×2 (07:51→19:45)
[2022-02-06] MEDS: levoTHYROXINE 75mcg tablet PO SCH (07:51)
[2022-02-06] MEDS: sertraline 50mg tablet PO SCH (07:51)
[2022-02-06] MEDS: cyanocobalamin 500mcg tablet PO SCH (07:51)
[2022-02-06] MEDS: heparin, porcine 5000 units/ml vial SQ SCH (07:52)
[2022-02-06] MEDS: docusate sod 100mg capsule PO SCH ×4 (07:52→20:00)
[2022-02-06] MEDS: aspirin 81mg tab.chew PO SCH (07:52)
[2022-02-06] MEDS: hydrALAZINE 20mg/ml inj. IV PRN (07:53)
[2022-02-06] MEDS ORDERED: lisinopril 20mg tablet PO SCH (08:00)
[2022-02-06] MEDS ORDERED: [UNRECOGNIZED DRUG - OTHER] PO SCH (08:00)
[2022-02-06] MEDS: CefTRIAXone/D5W-Rocephin 1gm 50 ML IV SCH (08:12)
[2022-02-06] MEDS: lamoTRIgine 100mg tablet PO SCH ×2 (08:16→19:45)
--- NOTE | 2022-02-06 08:47 | NUR ---
David lindsay: Noted neftali of 12 though no skin breakdown reported. Addendum: 02/06/22 at [address] Amended: Links added.
[2022-02-06] MEDS: budesonide 0.5mg/2ml UD nebule IH SCH ×2 (09:00→21:23)
[2022-02-06 11:00] VITALS: BP 156/80
--- NOTE | 2022-02-06 11:33 | NUR ---
PRESSURE ULCER EDUCATION: DEFINITION: A pressure ulcer is an area of skin that breaks down when you stay in one position too long. The constant pressure against the skin reduces the blood flow to that area and the affected tissue dies. CAUSES: "Being bedridden or in a wheelchair "Fragile skin "Having a chronic condition, such as diabetes or vascular disease "Inability to move certain parts of your body without assistance "Older age "Incontinence of urine or stool SYMPTOMS: "A reddened area that DOES NOT turn white when pressed on - this can be the beginning of a pressure ulcer "A blister, deep sore or a crater - these can be advanced pressure ulcers FIRST AID: "Relieve the pressure on this area "Keep the area clean and dry "Call your primary doctor if you see any of the above symptoms "DO NOT massage the area "DO NOT use a donut shaped or ring shaped pillow- these actually interfere with the blood flow and cause complications PREVENTION: "Check for pressure ulcers everyday "Change position at least every two hours to relieve pressure "Use items that help relieve pressure- pillows, sheepskin, foam padding, and powders. "Keep skin clean and dry "Eat healthy well balanced meals "Exercise daily IF YOU SEE ANY OF THESE SYMPTOMS WHILE IN THE HOSPITAL - TELL YOUR NURSE IMMEDIATELY. IF YOU SEE ANY OF THESE SYMPTOMS WHILE AT HOME OR HAVE ANY QUESTIONS OR CONCERNS ABOUT PRESSURE ULCERS - CALL YOUR PRIMARY DOCTOR IMMEDIATELY. Addendum: 02/06/22 at 1133 by Brandi Agosto RN Amended: Links added.
[2022-02-06] MEDS: acetaminophen 325mg tablet PO PRN (12:56)
[2022-02-06] MEDS ORDERED: lisinopril 5mg tablet PO SCH ×2 (13:56→14:01)
[2022-02-06 15:00] VITALS: BP 171/87
[2022-02-06 18:00] VITALS: BP 114/69
[2022-02-06] MEDS: ondansetron 4mg rapidly disintigrating tab PO PRN (19:45)
[2022-02-07] MEDS: albuterol 2.5 MG/3 ML nebule NEB SCH ×4 (02:58→20:00)
[2022-02-07 07:00] VITALS: BP 112/43
[2022-02-07] MEDS: CefTRIAXone/D5W-Rocephin 1gm 50 ML IV SCH (08:00)
[2022-02-07] MEDS: docusate sod 100mg capsule PO SCH ×3 (08:00→20:40)
[2022-02-07] MEDS: budesonide 0.5mg/2ml UD nebule IH SCH ×2 (08:51→20:00)
[2022-02-07] MEDS: isosorbide mononitrate 30mg tab.SR.24H PO SCH (10:33)
[2022-02-07] MEDS: atorvastatin 20mg tablet PO SCH (10:34)
[2022-02-07] MEDS: aspirin 81mg tab.chew PO SCH (10:34)
[2022-02-07] MEDS: lamoTRIgine 100mg tablet PO SCH ×2 (10:34→20:40)
[2022-02-07] MEDS: apixaban 5mg tablet PO SCH ×2 (10:34→20:40)
[2022-02-07] MEDS: clonazePAM 0.5mg tablet PO SCH ×4 (10:35→20:42)
[2022-02-07] MEDS: lamoTRIgine 25mg tablet PO SCH ×2 (10:35→20:41)
[2022-02-07] MEDS: sertraline 50mg tablet PO SCH (10:35)
[2022-02-07] MEDS: lactobacillus rhamnosus 10,000 MMU CELLS/CAPSULE PO SCH ×2 (10:35→20:40)
[2022-02-07] MEDS: amiodarone 200mg tablet PO SCH (10:36)
[2022-02-07] MEDS: levoTHYROXINE 75mcg tablet PO SCH (10:36)
[2022-02-07] MEDS: pantoprazole 40mg Tablet.DR PO SCH (10:36)
[2022-02-07] MEDS: cyanocobalamin 500mcg tablet PO SCH (10:36)
[2022-02-07] MEDS: memantine 5mg tablet PO SCH ×2 (10:36→20:40)
[2022-02-07] MEDS: lisinopril 5mg tablet PO SCH (10:37)
[2022-02-07] MEDS: OMEGA-3/DHA/EPA/FISH OIL 1 EACH CAPSULE.DR PO SCH (10:37)
[2022-02-07] MEDS: normal saline 1000ml 1,000 ML IV SCH (14:20)
[2022-02-07] MEDS: acetaminophen 325mg tablet PO PRN (17:03)
[2022-02-07 18:00] VITALS: BP 98/74
[2022-02-08] MEDS: albuterol 2.5 MG/3 ML nebule NEB SCH ×4 (02:53→20:27)
[2022-02-08 06:00] VITALS: BP 111/43
[2022-02-08 06:17] LABS: BASOPHILS % (AUTO) 0.4 % (0-1); EOSINOPHILS # (AUTO) 0.2 X10'3 (0-0.9); EOSINOPHILS % (AUTO) 2.4 % (0-6); HEMATOCRIT 36.7 % (42.0-52.0); HEMOGLOBIN 12.2 g/dl (14.0-17.9); LYMPHOCYTES # (AUTO) 1.4 X10'3 (1.1-4.8); LYMPHOCYTES % (AUTO) 16.9 % (21-51); MEAN CORPUSCULAR HEMOGLOBIN 27.9 PG (27.0-31.0); MEAN CORPUSCULAR HGB CONC 33.3 g/dL (33.0-36.5); MEAN CORPUSCULAR VOLUME 83.6 FL (78-98); MEAN PLATELET VOLUME 7.5 FL (7.4-10.4); MONOCYTES # (AUTO) 0.7 X10'3 (0-0.9); MONOCYTES % (AUTO) 8.1 % (2-12); NEUTROPHILS # (AUTO) 6.1 X10'3 (1.8-7.7); NEUTROPHILS % (AUTO) 72.2 % (42-75); PLATELET COUNT 183 X10'3 (140-440); RED BLOOD COUNT 4.39 X10'6 (4.70-6.10); RED CELL DISTRIBUTION WIDTH 17.6 % (11.5-14.5); WHITE BLOOD COUNT 8.5 X10'3 (4.5-11.0)
--- NOTE | 2022-02-08 06:27 | NUR ---
Problems reprioritized. Patient report given, questions answered & plan of care reviewed with Alyssia PARRISH.
[2022-02-08 06:29] LABS: ALANINE AMINOTRANSFERASE 7 U/L (12-78); ALBUMIN 3.2 G/DL (3.4-5.0); ALKALINE PHOSPHATASE 98 IU/L (46-116); ANION GAP 11 (8-16); ASPARTATE AMINO TRANSFERASE 19 U/L (10-37); BILIRUBIN,TOTAL 0.6 MG/DL (0.1-1.0); BLOOD UREA NITROGEN 25 MG/DL (7-18); BUN/CREATININE RATIO 15.9 (5.4-32.0); CALCIUM 8.8 MG/DL (8.5-10.1); CHLORIDE 105 MMOL/L (99-107); CREATININE 1.57 MG/DL (0.60-1.10); GLUCOSE 103 MG/DL (70-104); SODIUM 141 MMOL/L (135-145); TOTAL CARBON DIOXIDE 25.4 MMOL/L (24-32); TOTAL PROTEIN 6.5 G/DL (6.4-8.2); eGFR 43 ML/MIN
--- NOTE | 2022-02-08 06:59 | NUR ---
Patient in room PCU 3028H. I have received report from Melanie MOREL and had the opportunity to ask questions and assume patient care. Pt is laying supine on R side of body and is resting comfortably. Pt on RA. No s/s of distress, or s/s of pain. BLL, call light within reach, frequently used items in reach, frequent rounding, seo manager socks on. Will continue to monitor.
[2022-02-08] MEDS: docusate sod 100mg capsule PO SCH ×2 (08:08→20:01)
[2022-02-08] MEDS: memantine 5mg tablet PO SCH ×2 (08:08→20:01)
[2022-02-08] MEDS: aspirin 81mg tab.chew PO SCH (08:08)
[2022-02-08] MEDS: apixaban 5mg tablet PO SCH ×2 (08:09→20:02)
[2022-02-08] MEDS: sertraline 50mg tablet PO SCH (08:09)
[2022-02-08] MEDS: clonazePAM 0.5mg tablet PO SCH ×4 (08:09→20:10)
[2022-02-08] MEDS: lamoTRIgine 100mg tablet PO SCH ×2 (08:09→20:02)
[2022-02-08] MEDS: pantoprazole 40mg Tablet.DR PO SCH (08:09)
[2022-02-08] MEDS: OMEGA-3/DHA/EPA/FISH OIL 1 EACH CAPSULE.DR PO SCH (08:09)
[2022-02-08] MEDS: lactobacillus rhamnosus 10,000 MMU CELLS/CAPSULE PO SCH ×2 (08:10→20:03)
[2022-02-08] MEDS: amiodarone 200mg tablet PO SCH (08:10)
[2022-02-08] MEDS: lamoTRIgine 25mg tablet PO SCH ×2 (08:10→20:00)
[2022-02-08] MEDS: cyanocobalamin 500mcg tablet PO SCH (08:11)
[2022-02-08] MEDS: levoTHYROXINE 75mcg tablet PO SCH (08:11)
[2022-02-08] MEDS: isosorbide mononitrate 30mg tab.SR.24H PO SCH (08:11)
[2022-02-08] MEDS: atorvastatin 20mg tablet PO SCH (08:11)
[2022-02-08] MEDS: lisinopril 5mg tablet PO SCH (08:12)
[2022-02-08] MEDS: CefTRIAXone/D5W-Rocephin 1gm 50 ML IV SCH (08:12)
[2022-02-08] MEDS: budesonide 0.5mg/2ml UD nebule IH SCH ×2 (08:28→20:27)
[2022-02-08 11:00] VITALS: BP 98/54
[2022-02-08 15:00] VITALS: BP 137/63
[2022-02-08] MEDS: magnesium hydroxide 30ml (MOM) UD suspension PO PRN (16:26)
[2022-02-08 18:00] VITALS: BP 137/62
--- NOTE | 2022-02-08 19:12 | NUR ---
Problems reprioritized. Patient report given, questions answered & plan of care reviewed with Ariana PARRISH.
[2022-02-08] MEDS: normal saline 1000ml 1,000 ML IV SCH (20:55)
[2022-02-08 22:38] VITALS: BP 108/60
--- NOTE | 2022-02-08 23:45 | NUR ---
Pt. is awake alert oriented jittery with uncontrollable tremors and shakes of hands especially while intentionally reaching for items. Speech is clear able to tell jokes and make light of situation . 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 Pt. is able to use call light and request urinal or bedpan. Pt. has SL. Had large formed BM states still feels as if not completely empty. Skin is intact. Able to take pm meds and laxative. States chronic back pain is relieved with bed and pillow positioning. Resting quietly most of the time.
[2022-02-09] MEDS: temazepam 15mg capsule PO PRN (01:38)
[2022-02-09] MEDS: hydrALAZINE 20mg/ml inj. IV PRN (01:38)
[2022-02-09] MEDS: acetaminophen 325mg tablet PO PRN (01:39)
[2022-02-09] MEDS: albuterol 2.5 MG/3 ML nebule NEB SCH ×4 (03:17→20:40)
[2022-02-09 06:00] VITALS: BP 153/66
--- NOTE | 2022-02-09 06:40 | NUR ---
Patient in room PCU 3026. I have received report from NIKKI PARRISH and had the opportunity to ask questions and assume patient care.
[2022-02-09 07:04] LABS: BASOPHILS % (AUTO) 0.4 % (0-1); EOSINOPHILS # (AUTO) 0.2 X10'3 (0-0.9); EOSINOPHILS % (AUTO) 2.2 % (0-6); HEMATOCRIT 36.5 % (42.0-52.0); HEMOGLOBIN 12.2 g/dl (14.0-17.9); LYMPHOCYTES # (AUTO) 1.3 X10'3 (1.1-4.8); LYMPHOCYTES % (AUTO) 13.5 % (21-51); MEAN CORPUSCULAR HEMOGLOBIN 28.3 PG (27.0-31.0); MEAN CORPUSCULAR HGB CONC 33.5 g/dL (33.0-36.5); MEAN CORPUSCULAR VOLUME 84.5 FL (78-98); MEAN PLATELET VOLUME 7.7 FL (7.4-10.4); MONOCYTES # (AUTO) 0.7 X10'3 (0-0.9); MONOCYTES % (AUTO) 7.1 % (2-12); NEUTROPHILS # (AUTO) 7.4 X10'3 (1.8-7.7); NEUTROPHILS % (AUTO) 76.8 % (42-75); PLATELET COUNT 177 X10'3 (140-440); RED BLOOD COUNT 4.31 X10'6 (4.70-6.10); RED CELL DISTRIBUTION WIDTH 17.8 % (11.5-14.5); WHITE BLOOD COUNT 9.7 X10'3 (4.5-11.0)
--- NOTE | 2022-02-09 07:17 | NUR ---
Pt. would like to resume taking 1mg (Blue Pill) of Klonipin as at home. Pt. states yellow pill (0.5 mg) is ineffective for the shaking and did not feel he was getting the right pill Will request higher dose only at night for pt comfort and sleep
[2022-02-09] MEDS: sertraline 50mg tablet PO SCH (07:48)
[2022-02-09] MEDS: amiodarone 200mg tablet PO SCH (07:48)
[2022-02-09] MEDS: levoTHYROXINE 75mcg tablet PO SCH (07:49)
[2022-02-09] MEDS: lisinopril 5mg tablet PO SCH (07:49)
[2022-02-09] MEDS: isosorbide mononitrate 30mg tab.SR.24H PO SCH (07:49)
[2022-02-09] MEDS: cyanocobalamin 500mcg tablet PO SCH (07:49)
[2022-02-09] MEDS: aspirin 81mg tab.chew PO SCH (07:49)
[2022-02-09] MEDS: memantine 5mg tablet PO SCH ×2 (07:49→20:18)
[2022-02-09] MEDS: atorvastatin 20mg tablet PO SCH (07:50)
[2022-02-09] MEDS: lamoTRIgine 25mg tablet PO SCH ×2 (07:50→20:18)
[2022-02-09] MEDS: lamoTRIgine 100mg tablet PO SCH ×2 (07:50→20:18)
[2022-02-09] MEDS: OMEGA-3/DHA/EPA/FISH OIL 1 EACH CAPSULE.DR PO SCH (07:50)
[2022-02-09] MEDS: lactobacillus rhamnosus 10,000 MMU CELLS/CAPSULE PO SCH ×2 (07:51→20:00)
[2022-02-09] MEDS: pantoprazole 40mg Tablet.DR PO SCH (07:51)
[2022-02-09] MEDS: clonazePAM 0.5mg tablet PO SCH ×4 (07:51→20:19)
[2022-02-09] MEDS: apixaban 5mg tablet PO SCH ×2 (07:51→20:17)
[2022-02-09] MEDS: docusate sod 100mg capsule PO SCH ×2 (07:52→20:00)
[2022-02-09] MEDS: budesonide 0.5mg/2ml UD nebule IH SCH ×2 (07:55→20:40)
[2022-02-09] MEDS: CefTRIAXone/D5W-Rocephin 1gm 50 ML IV SCH (08:07)
[2022-02-09 08:14] LABS: ALANINE AMINOTRANSFERASE 22 U/L (12-78); ALBUMIN 3.1 G/DL (3.4-5.0); ALBUMIN/GLOBULIN RATIO 0.9 (1.1-1.5); ALKALINE PHOSPHATASE 105 IU/L (46-116); ANION GAP 9 (8-16); ASPARTATE AMINO TRANSFERASE 29 U/L (10-37); BILIRUBIN,TOTAL 0.5 MG/DL (0.1-1.0); BLOOD UREA NITROGEN 28 MG/DL (7-18); BUN/CREATININE RATIO 19.3 (5.4-32.0); CALCIUM 8.7 MG/DL (8.5-10.1); CHLORIDE 105 MMOL/L (99-107); CREATININE 1.45 MG/DL (0.60-1.10); GLUCOSE 107 MG/DL (70-104); POTASSIUM 4.1 MMOL/L (3.5-5.1); SODIUM 140 MMOL/L (135-145); TOTAL CARBON DIOXIDE 25.8 MMOL/L (24-32); TOTAL PROTEIN 6.5 G/DL (6.4-8.2); eGFR 47 ML/MIN
--- NOTE | 2022-02-09 08:42 | NUR ---
Normal saline non-admin this am due to being not administered by previous shift.
--- NOTE | 2022-02-09 08:58 | NUR ---
Initial: Pt admit DX severe dementia, acute hypertensive encephalopathy, CHF, and R PNA per EMR. PO fluctuating ~40% avg heart healthy diet improving to 50-75% meals yesterday partially meeting needs. SAMEERA recommends Ensure Enlive TIDWM to assist meeting needs; notified. LBM 02/08. Will monitor for further nutrition intervention needs this admit. Rec: 1. continue heart healthy diet; liberalize to regular if poor PO persists 2, Ensure Enlive TIDWM; pending physician verification in EMR 3. routine bowel care 4. scaled wt this admit; subsequent weekly wts Addendum: 02/09/22 at [address] Amended: Links added.
[2022-02-09 10:00] VITALS: BP 129/68
[2022-02-09] MEDS: lactose-reduced food (Ensure Enlive) - 237ml bottle PO SCH ×5 (13:00→20:40)
--- NOTE | 2022-02-09 14:14 | NUR ---
MANAGER TREASURY documentation: I have reviewed and agree with all interventions, assessments performed and documented by ROXANA TSANG LVN.
--- NOTE | 2022-02-09 18:21 | NUR ---
Problems reprioritized. Patient report given, questions answered & plan of care reviewed with Ariana PARRISH.
[2022-02-09 18:38] VITALS: BP 143/83
[2022-02-09] MEDS: diphenhydrAMINE 25mg capsule PO PRN (20:18)
--- NOTE | 2022-02-09 21:29 | NUR ---
Pt. is awake alert oriented states feels ok still has large uncontrollable tremors. Needs assistance with urinal voids mod amt clear yellow urine. Peripheral IV/SL intact. Takes PM meds well needs assistanc with cup holding. Pt. would like to receive a larger dose of Klonpin, advised of new orders will get same med four times a day instead of two times. Pt. appears to understand but still requesting additional dose. Pt. having frequent stools laxatives held. Medicated with Benadryl for sleep tolerated well Addendum: 02/09/22 at 2138 by Ariana Leone RN Plan for discharge to Skilled facility vs.Physical Rehab.
[2022-02-09 22:53] VITALS: BP 156/69
[2022-02-10] MEDS: diphenhydrAMINE 25mg capsule PO PRN (01:51)
[2022-02-10] MEDS: ondansetron 4mg rapidly disintigrating tab PO PRN (01:51)
[2022-02-10 02:32] VITALS: BP 165/68
[2022-02-10] MEDS: albuterol 2.5 MG/3 ML nebule NEB SCH ×4 (02:43→21:17)
[2022-02-10 07:00] VITALS: BP 110/70
[2022-02-10] MEDS: budesonide 0.5mg/2ml UD nebule IH SCH ×2 (07:10→21:17)
[2022-02-10] MEDS: docusate sod 100mg capsule PO SCH ×2 (08:00→22:44)
[2022-02-10] MEDS: pantoprazole 40mg Tablet.DR PO SCH (08:07)
[2022-02-10] MEDS: amiodarone 200mg tablet PO SCH (08:08)
[2022-02-10] MEDS: CefTRIAXone/D5W-Rocephin 1gm 50 ML IV SCH (08:08)
[2022-02-10] MEDS: levoTHYROXINE 75mcg tablet PO SCH (08:08)
[2022-02-10] MEDS: OMEGA-3/DHA/EPA/FISH OIL 1 EACH CAPSULE.DR PO SCH (08:08)
[2022-02-10] MEDS: sertraline 50mg tablet PO SCH (08:09)
[2022-02-10] MEDS: aspirin 81mg tab.chew PO SCH (08:09)
[2022-02-10] MEDS: lamoTRIgine 100mg tablet PO SCH ×2 (08:09→22:44)
[2022-02-10] MEDS: lamoTRIgine 25mg tablet PO SCH ×2 (08:09→22:44)
[2022-02-10] MEDS: apixaban 5mg tablet PO SCH ×2 (08:10→22:44)
[2022-02-10] MEDS: memantine 5mg tablet PO SCH ×2 (08:10→22:45)
[2022-02-10] MEDS: lactobacillus rhamnosus 10,000 MMU CELLS/CAPSULE PO SCH ×2 (08:10→22:44)
[2022-02-10] MEDS: clonazePAM 0.5mg tablet PO SCH ×4 (08:10→22:45)
[2022-02-10] MEDS: cyanocobalamin 500mcg tablet PO SCH (08:10)
[2022-02-10] MEDS: isosorbide mononitrate 30mg tab.SR.24H PO SCH (08:12)
[2022-02-10] MEDS: lisinopril 5mg tablet PO SCH (08:13)
[2022-02-10 08:15] VITALS: BP 163/79
[2022-02-10] MEDS: atorvastatin 20mg tablet PO SCH (08:15)
[2022-02-10 15:30] VITALS: BP 123/50
[2022-02-10 18:00] VITALS: BP 101/78
--- NOTE | 2022-02-10 18:50 | NUR ---
Problems reprioritized. Patient report given, questions answered & plan of care reviewed with Ignacio PARRISH.
[2022-02-10] MEDS: normal saline 1000ml 1,000 ML IV SCH (20:55)
[2022-02-10 22:00] VITALS: BP 159/62
[2022-02-11] MEDS: temazepam 15mg capsule PO PRN ×2 (01:22→20:28)
[2022-02-11 02:00] VITALS: BP 141/77
[2022-02-11] MEDS: albuterol 2.5 MG/3 ML nebule NEB SCH ×4 (02:51→21:43)
[2022-02-11 06:30] VITALS: BP 128/59
[2022-02-11] MEDS: apixaban 5mg tablet PO SCH ×2 (07:40→20:18)
[2022-02-11] MEDS: lamoTRIgine 25mg tablet PO SCH ×2 (07:41→20:18)
[2022-02-11] MEDS: lamoTRIgine 100mg tablet PO SCH ×2 (07:41→20:19)
[2022-02-11] MEDS: isosorbide mononitrate 30mg tab.SR.24H PO SCH (07:41)
[2022-02-11] MEDS: amiodarone 200mg tablet PO SCH (07:41)
[2022-02-11] MEDS: atorvastatin 20mg tablet PO SCH (07:41)
[2022-02-11] MEDS: cyanocobalamin 500mcg tablet PO SCH (07:41)
[2022-02-11] MEDS: levoTHYROXINE 75mcg tablet PO SCH (07:41)
[2022-02-11] MEDS: sertraline 50mg tablet PO SCH (07:41)
[2022-02-11] MEDS: memantine 5mg tablet PO SCH ×2 (07:41→20:18)
[2022-02-11] MEDS: docusate sod 100mg capsule PO SCH ×2 (07:42→20:18)
[2022-02-11] MEDS: OMEGA-3/DHA/EPA/FISH OIL 1 EACH CAPSULE.DR PO SCH (07:42)
[2022-02-11] MEDS: clonazePAM 0.5mg tablet PO SCH ×4 (07:42→20:19)
[2022-02-11] MEDS: lactobacillus rhamnosus 10,000 MMU CELLS/CAPSULE PO SCH ×2 (07:42→20:19)
[2022-02-11] MEDS: lisinopril 5mg tablet PO SCH (07:42)
[2022-02-11] MEDS: lactose-reduced food (Ensure Enlive) - 237ml bottle PO SCH ×3 (07:43→18:00)
[2022-02-11] MEDS: aspirin 81mg tab.chew PO SCH (07:43)
[2022-02-11] MEDS: pantoprazole 40mg Tablet.DR PO SCH (07:43)
[2022-02-11] MEDS: CefTRIAXone/D5W-Rocephin 1gm 50 ML IV SCH (07:46)
[2022-02-11] MEDS: budesonide 0.5mg/2ml UD nebule IH SCH ×2 (08:59→21:43)
[2022-02-11 11:00] VITALS: BP 139/72
[2022-02-11 16:00] VITALS: BP 145/75
[2022-02-11 18:00] VITALS: BP 161/71
[2022-02-11] MEDS: normal saline 1000ml 1,000 ML IV SCH (20:26)
[2022-02-11 22:00] VITALS: BP 153/78
--- NOTE | 2022-02-12 00:11 | NUR ---
Condom catheter was put on at 2100 PM and Pt feels happy to put it on so he can sleep well overnight, will not worry about for incontinent.
[2022-02-12 02:00] VITALS: BP 173/78
[2022-02-12] MEDS: hydrALAZINE 20mg/ml inj. IV PRN (02:48)
--- NOTE | 2022-02-12 02:50 | NUR ---
BP 173/78. HR 76 PRN hydralazine 10 mg IV given.
[2022-02-12] MEDS: albuterol 2.5 MG/3 ML nebule NEB SCH ×4 (03:32→20:52)
[2022-02-12 06:30] VITALS: BP 179/78
[2022-02-12] MEDS: budesonide 0.5mg/2ml UD nebule IH SCH ×2 (07:49→20:52)
[2022-02-12] MEDS: amiodarone 200mg tablet PO SCH (08:40)
[2022-02-12] MEDS: cyanocobalamin 500mcg tablet PO SCH (08:41)
[2022-02-12] MEDS: lisinopril 5mg tablet PO SCH (08:41)
[2022-02-12] MEDS: clonazePAM 0.5mg tablet PO SCH ×4 (08:42→20:57)
[2022-02-12] MEDS: apixaban 5mg tablet PO SCH ×2 (08:42→20:57)
[2022-02-12] MEDS: sertraline 50mg tablet PO SCH (08:42)
[2022-02-12] MEDS: atorvastatin 20mg tablet PO SCH (08:42)
[2022-02-12] MEDS: isosorbide mononitrate 30mg tab.SR.24H PO SCH (08:42)
[2022-02-12] MEDS: lamoTRIgine 100mg tablet PO SCH ×2 (08:42→20:56)
[2022-02-12] MEDS: lamoTRIgine 25mg tablet PO SCH ×2 (08:42→20:56)
[2022-02-12] MEDS: aspirin 81mg tab.chew PO SCH (08:42)
[2022-02-12] MEDS: OMEGA-3/DHA/EPA/FISH OIL 1 EACH CAPSULE.DR PO SCH (08:42)
[2022-02-12] MEDS: lactobacillus rhamnosus 10,000 MMU CELLS/CAPSULE PO SCH ×2 (08:43→20:57)
[2022-02-12] MEDS: memantine 5mg tablet PO SCH ×2 (08:43→20:57)
[2022-02-12] MEDS: CefTRIAXone/D5W-Rocephin 1gm 50 ML IV SCH (08:43)
[2022-02-12] MEDS: docusate sod 100mg capsule PO SCH (08:43)
[2022-02-12] MEDS: pantoprazole 40mg Tablet.DR PO SCH (08:45)
[2022-02-12] MEDS: levoTHYROXINE 75mcg tablet PO SCH (08:45)
[2022-02-12] MEDS: lactose-reduced food (Ensure Enlive) - 237ml bottle PO SCH ×3 (08:45→17:49)
[2022-02-12 11:00] VITALS: BP 145/74
--- NOTE | 2022-02-12 11:13 | NUR ---
F/u 02/12: Pt PO improving more consistent ~65% avg meals and 100% first two ONS yesterday per EMR meeting needs. LBM 02/11 receiving routine colace. Will monitor for further PO trends and nutrition intervention needs. Rec: 1. continue heart healthy diet; liberalize to regular if PO regresses 2, Ensure Enlive TIDWM; change to BID if current PO trends persist 3. routine bowel care 4. scaled wt this admit; subsequent weekly wts Addendum: 02/12/22 at [address] Amended: Links added.
[2022-02-12] MEDS: acetaminophen 325mg tablet PO PRN (12:27)
[2022-02-12 16:00] VITALS: BP 147/76
[2022-02-12 18:00] VITALS: BP 146/56
[2022-02-12] MEDS: normal saline 1000ml 1,000 ML IV SCH (20:55)
[2022-02-12 22:00] VITALS: BP 150/71
[2022-02-13 02:00] VITALS: BP 162/63
[2022-02-13] MEDS: albuterol 2.5 MG/3 ML nebule NEB SCH ×4 (02:44→20:24)
[2022-02-13 06:00] VITALS: BP 128/77
[2022-02-13] MEDS: budesonide 0.5mg/2ml UD nebule IH SCH ×2 (07:54→20:23)
[2022-02-13] MEDS: lamoTRIgine 25mg tablet PO SCH ×2 (08:00→20:24)
[2022-02-13] MEDS: lactose-reduced food (Ensure Enlive) - 237ml bottle PO SCH ×3 (08:00→18:00)
[2022-02-13 09:33] LABS: BASOPHILS % (AUTO) 0.4 % (0-1); EOSINOPHILS # (AUTO) 0.2 X10'3 (0-0.9); EOSINOPHILS % (AUTO) 1.9 % (0-6); HEMATOCRIT 40.1 % (42.0-52.0); HEMOGLOBIN 13.2 g/dl (14.0-17.9); LYMPHOCYTES # (AUTO) 1.5 X10'3 (1.1-4.8); LYMPHOCYTES % (AUTO) 14.5 % (21-51); MEAN CORPUSCULAR HEMOGLOBIN 27.9 PG (27.0-31.0); MEAN CORPUSCULAR HGB CONC 32.8 g/dL (33.0-36.5); MEAN PLATELET VOLUME 7.9 FL (7.4-10.4); MONOCYTES # (AUTO) 0.7 X10'3 (0-0.9); MONOCYTES % (AUTO) 6.8 % (2-12); NEUTROPHILS # (AUTO) 7.7 X10'3 (1.8-7.7); NEUTROPHILS % (AUTO) 76.4 % (42-75); PLATELET COUNT 237 X10'3 (140-440); RED BLOOD COUNT 4.72 X10'6 (4.70-6.10); RED CELL DISTRIBUTION WIDTH 17.6 % (11.5-14.5); WHITE BLOOD COUNT 10.1 X10'3 (4.5-11.0)
[2022-02-13 09:46] LABS: ALANINE AMINOTRANSFERASE 17 U/L (12-78); ALBUMIN 3.5 G/DL (3.4-5.0); ALBUMIN/GLOBULIN RATIO 0.9 (1.1-1.5); ALKALINE PHOSPHATASE 101 IU/L (46-116); ANION GAP 17 (8-16); ASPARTATE AMINO TRANSFERASE 17 U/L (10-37); BILIRUBIN,TOTAL 0.8 MG/DL (0.1-1.0); BLOOD UREA NITROGEN 21 MG/DL (7-18); CALCIUM 9.2 MG/DL (8.5-10.1); CHLORIDE 103 MMOL/L (99-107); GLUCOSE 165 MG/DL (70-104); POTASSIUM 4.2 MMOL/L (3.5-5.1); SODIUM 142 MMOL/L (135-145); TOTAL CARBON DIOXIDE 22.5 MMOL/L (24-32); TOTAL PROTEIN 7.4 G/DL (6.4-8.2); eGFR 49 ML/MIN
[2022-02-13] MEDS: lactobacillus rhamnosus 10,000 MMU CELLS/CAPSULE PO SCH ×2 (10:00→20:23)
[2022-02-13] MEDS: memantine 5mg tablet PO SCH (10:00)
[2022-02-13] MEDS: apixaban 5mg tablet PO SCH ×2 (10:00→20:25)
[2022-02-13] MEDS: isosorbide mononitrate 30mg tab.SR.24H PO SCH (10:00)
[2022-02-13] MEDS: aspirin 81mg tab.chew PO SCH (10:01)
[2022-02-13] MEDS: atorvastatin 20mg tablet PO SCH (10:02)
[2022-02-13] MEDS: lamoTRIgine 100mg tablet PO SCH ×2 (10:04→20:24)
[2022-02-13] MEDS: clonazePAM 0.5mg tablet PO SCH ×3 (10:05→20:24)
[2022-02-13] MEDS: sertraline 50mg tablet PO SCH (10:05)
[2022-02-13] MEDS: amiodarone 200mg tablet PO SCH (10:05)
[2022-02-13] MEDS: lisinopril 5mg tablet PO SCH (10:07)
[2022-02-13] MEDS: levoTHYROXINE 75mcg tablet PO SCH (10:07)
[2022-02-13] MEDS: OMEGA-3/DHA/EPA/FISH OIL 1 EACH CAPSULE.DR PO SCH (10:07)
[2022-02-13] MEDS: cyanocobalamin 500mcg tablet PO SCH (10:07)
[2022-02-13] MEDS: pantoprazole 40mg Tablet.DR PO SCH (10:07)
[2022-02-13] MEDS ORDERED: morphine 2 MG/ML inj. syringe IV PRN ×2 (10:20)
[2022-02-13] MEDS ORDERED: HYDROcodone/acetaminophen 10/325mg tab PO PRN (10:20)
[2022-02-13] MEDS ORDERED: HYDROcodone/acetaminophen 5mg/325mg tablet PO PRN (10:20)
[2022-02-13] MEDS: cholecalciferol (vitamin D3) 1,000 unit (25mcg) tablet PO SCH (13:15)
[2022-02-13 18:00] VITALS: BP 128/51
[2022-02-13] MEDS: diphenhydrAMINE 25mg capsule PO PRN (20:26)
[2022-02-13 21:11] VITALS: BP 128/51
[2022-02-13 23:00] VITALS: BP 106/49
--- NOTE | 2022-02-13 23:09 | NUR ---
Received pt. awake alert talking on the phne with family member. Pt. states does not want to go home but would rather go to skilled facility with [facility] benefits. Will defer to social problems specialist. Peripheral IV sl intact . Pt. needs assistance with voiding per urinal. Urine cira clear. No stool per requested bedpan. Passing flatus. Plan for skilled facility placement.
[2022-02-14 00:36] VITALS: BP 171/77
[2022-02-14] MEDS: hydrALAZINE 20mg/ml inj. IV PRN (00:42)
[2022-02-14] MEDS: normal saline 1000ml 1,000 ML IV SCH ×2 (00:58→20:58)
[2022-02-14] MEDS: albuterol 2.5 MG/3 ML nebule NEB SCH ×4 (02:39→20:02)
[2022-02-14 02:53] VITALS: BP 154/69
[2022-02-14] MEDS: diphenhydrAMINE 25mg capsule PO PRN (03:02)
[2022-02-14] MEDS: cyanocobalamin 500mcg tablet PO SCH (08:00)
[2022-02-14] MEDS: lactose-reduced food (Ensure Enlive) - 237ml bottle PO SCH ×3 (08:00→17:17)
[2022-02-14] MEDS: budesonide 0.5mg/2ml UD nebule IH SCH ×2 (08:05→20:02)
[2022-02-14] MEDS: atorvastatin 20mg tablet PO SCH (08:38)
[2022-02-14] MEDS: lamoTRIgine 100mg tablet PO SCH ×2 (08:38→20:52)
[2022-02-14] MEDS: amiodarone 200mg tablet PO SCH (08:39)
[2022-02-14] MEDS: clonazePAM 0.5mg tablet PO SCH ×2 (08:39→20:53)
[2022-02-14] MEDS: isosorbide mononitrate 30mg tab.SR.24H PO SCH (08:39)
[2022-02-14] MEDS: lisinopril 5mg tablet PO SCH (08:40)
[2022-02-14] MEDS: cholecalciferol (vitamin D3) 1,000 unit (25mcg) tablet PO SCH (08:41)
[2022-02-14] MEDS: lamoTRIgine 25mg tablet PO SCH ×2 (08:41→20:52)
[2022-02-14] MEDS: apixaban 5mg tablet PO SCH ×2 (08:41→20:53)
[2022-02-14] MEDS: aspirin 81mg tab.chew PO SCH (08:42)
[2022-02-14] MEDS: levoTHYROXINE 75mcg tablet PO SCH (08:42)
[2022-02-14] MEDS: pantoprazole 40mg Tablet.DR PO SCH (08:42)
[2022-02-14] MEDS: lactobacillus rhamnosus 10,000 MMU CELLS/CAPSULE PO SCH ×2 (08:42→20:53)
[2022-02-14] MEDS: sertraline 50mg tablet PO SCH (08:42)
[2022-02-14] MEDS ORDERED: propranolol LA 80mg capsule (long-acting) PO SCH (10:40)
[2022-02-14 18:00] VITALS: BP 155/62
[2022-02-14 22:00] VITALS: BP 150/63
[2022-02-14] MEDS ORDERED: propranolol LA 60 MG cap.SA.24H PO SCH (22:19)
[2022-02-15] MEDS: diphenhydrAMINE 25mg capsule PO PRN (00:18)
[2022-02-15] MEDS: acetaminophen 325mg tablet PO PRN (00:19)
[2022-02-15 02:00] VITALS: BP 148/59
[2022-02-15] MEDS: temazepam 15mg capsule PO PRN (03:08)
[2022-02-15] MEDS: albuterol 2.5 MG/3 ML nebule NEB SCH ×3 (03:10→15:24)
[2022-02-15 06:06] VITALS: BP 132/69
--- NOTE | 2022-02-15 07:03 | NUR ---
Problems reprioritized. Patient report given, questions answered & plan of care reviewed with Erasmo PARRISH.
[2022-02-15] MEDS: lactose-reduced food (Ensure Enlive) - 237ml bottle PO SCH ×2 (08:00→13:23)
[2022-02-15] MEDS: budesonide 0.5mg/2ml UD nebule IH SCH (08:13)
[2022-02-15] MEDS: amiodarone 200mg tablet PO SCH (09:53)
[2022-02-15] MEDS: aspirin 81mg tab.chew PO SCH (09:53)
[2022-02-15] MEDS: pantoprazole 40mg Tablet.DR PO SCH (09:53)
[2022-02-15] MEDS: levoTHYROXINE 75mcg tablet PO SCH (09:53)
[2022-02-15] MEDS: apixaban 5mg tablet PO SCH (09:54)
[2022-02-15] MEDS: isosorbide mononitrate 30mg tab.SR.24H PO SCH (09:54)
[2022-02-15] MEDS: lactobacillus rhamnosus 10,000 MMU CELLS/CAPSULE PO SCH (09:54)
[2022-02-15] MEDS: clonazePAM 0.5mg tablet PO SCH (09:55)
[2022-02-15] MEDS: lamoTRIgine 25mg tablet PO SCH (09:55)
[2022-02-15] MEDS: lamoTRIgine 100mg tablet PO SCH (09:55)
[2022-02-15] MEDS: atorvastatin 20mg tablet PO SCH (09:56)
[2022-02-15] MEDS: cholecalciferol (vitamin D3) 1,000 unit (25mcg) tablet PO SCH (09:56)
[2022-02-15] MEDS: cyanocobalamin 500mcg tablet PO SCH (09:56)
[2022-02-15] MEDS: lisinopril 5mg tablet PO SCH (09:56)
[2022-02-15] MEDS: sertraline 50mg tablet PO SCH (09:57)
[2022-02-15 12:17] VITALS: BP 126/55
--- NOTE | 2022-02-15 12:42 | NUR ---
[facility] was told [facility] and for RN to call back later
[2022-02-15 15:33] VITALS: BP 124/66
--- NOTE | 2022-02-15 16:42 | NUR ---
REPORT CALLED TO ROSA CLARKE RN.
[2022-02-15] MEDS: normal saline 1000ml 1,000 ML IV SCH (16:58)
== END 2022-02-15 17:30 | DRG 77 ==
LOC: ER 16:09 → ED HOLD 20:58 → EDBEDREQ 02-05 05:22 → PCU 3S 02-05 07:05
PROVIDERS: ADMIT Family Medicine; ATTEND Family Medicine
DX: I67.4 Hypertensive encephalopathy (principal); J18.9 Pneumonia, unspecified organism; I13.0 Hypertensive heart and chronic kidney disease with heart failure and stage 1 through stage 4 chronic kidney disease, or unspecified chronic kidney disease; I16.1 Hypertensive emergency; J98.11 Atelectasis; N39.0 Urinary tract infection, site not specified; I48.20 Chronic atrial fibrillation, unspecified; I50.22 Chronic systolic (congestive) heart failure; J44.0 Chronic obstructive pulmonary disease with (acute) lower respiratory infection; Z20.822 Contact with and (suspected) exposure to COVID-19; E03.9 Hypothyroidism, unspecified; E66.01 Morbid (severe) obesity due to excess calories; E78.00 Pure hypercholesterolemia, unspecified; G25.3 Myoclonus; K57.90 Diverticulosis of intestine, part unspecified, without perforation or abscess without bleeding; R00.1 Bradycardia, unspecified; R41.3 Other amnesia; R26.9 Unspecified abnormalities of gait and mobility; R53.81 Other malaise; N18.9 Chronic kidney disease, unspecified; G62.9 Polyneuropathy, unspecified; I25.10 Atherosclerotic heart disease of native coronary artery without angina pectoris; Z95.0 Presence of cardiac pacemaker; Z87.442 Personal history of urinary calculi; Z86.73 Personal history of transient ischemic attack (TIA), and cerebral infarction without residual deficits; I25.2 Old myocardial infarction; Z95.1 Presence of aortocoronary bypass graft; Z95.5 Presence of coronary angioplasty implant and graft; Z88.8 Allergy status to other drugs, medicaments and biological substances; Z68.32 Body mass index [BMI] 32.0-32.9, adult; Z82.49 Family history of ischemic heart disease and other diseases of the circulatory system; Z79.899 Other long term (current) drug therapy; Z79.82 Long term (current) use of aspirin
CPT/HCPCS: 36415; 70450; 71045; 80053; 81001; 82550; 82607; 82948; 83690; 83735; 83880; 84100; 84443; 84484; 85025; 85610; 85651; 85730; 86885; 86900; 86901; 87088; 87635; 93005; 94640; 94760; 97110; 97161; 97530; 97535; 99285; A4349; A4649; A5200; A6213; A6258; A6402; A6449; G0378; J0360; J0696; J1644; J2270; J7030; J7040; Q0163

== ENCOUNTER 2022-02-16 16:53 | Observation (INO) | payer OTHER, MEDICARE ==
[~2022-02-16] VITALS: Ht 180.3 cm; Wt 90.9 kg
[~2022-02-16 16:53] MED LIST changes: +LEVE10006 PO
--- NOTE | 2022-02-16 18:11 | NUR ---
Bernie ([email or web address]) is available by phone . Pt has given permission for her to receive information.
--- NOTE | 2022-02-16 20:39 | NUR ---
Reviewed and agreed with ADRIEL Rao's general assessment.
--- NOTE | 2022-02-16 21:31 | NUR ---
spoke with jacqueline and gave her an update.
[2022-02-16 22:05] LABS: BASOPHILS # (AUTO) 0.1 X10'3 (0-0.2); BASOPHILS % (AUTO) 0.7 % (0-1); EOSINOPHILS # (AUTO) 0.3 X10'3 (0-0.9); EOSINOPHILS % (AUTO) 1.8 % (0-6); HEMATOCRIT 40.5 % (42.0-52.0); HEMOGLOBIN 13.2 g/dl (14.0-17.9); LYMPHOCYTES # (AUTO) 1.9 X10'3 (1.1-4.8); LYMPHOCYTES % (AUTO) 13.4 % (21-51); MEAN CORPUSCULAR HGB CONC 32.6 g/dL (33.0-36.5); MEAN CORPUSCULAR VOLUME 85.7 FL (78-98); MEAN PLATELET VOLUME 7.5 FL (7.4-10.4); MONOCYTES # (AUTO) 1.1 X10'3 (0-0.9); MONOCYTES % (AUTO) 7.4 % (2-12); NEUTROPHILS # (AUTO) 10.9 X10'3 (1.8-7.7); NEUTROPHILS % (AUTO) 76.7 % (42-75); PLATELET COUNT 262 X10'3 (140-440); RED BLOOD COUNT 4.73 X10'6 (4.70-6.10); RED CELL DISTRIBUTION WIDTH 17.5 % (11.5-14.5); WHITE BLOOD COUNT 14.3 X10'3 (4.5-11.0)
[2022-02-16 22:26] LABS: ALANINE AMINOTRANSFERASE 19 U/L (12-78); ALBUMIN 3.4 G/DL (3.4-5.0); ALBUMIN/GLOBULIN RATIO 0.9 (1.1-1.5); ALKALINE PHOSPHATASE 94 IU/L (46-116); ANION GAP 11 (8-16); ASPARTATE AMINO TRANSFERASE 20 U/L (10-37); BILIRUBIN,TOTAL 0.8 MG/DL (0.1-1.0); BLOOD UREA NITROGEN 52 MG/DL (7-18); BUN/CREATININE RATIO 24.4 (5.4-32.0); CALCIUM 9.2 MG/DL (8.5-10.1); CHLORIDE 106 MMOL/L (99-107); CREATININE 2.13 MG/DL (0.60-1.10); GLUCOSE 109 MG/DL (70-104); POTASSIUM 4.8 MMOL/L (3.5-5.1); SODIUM 140 MMOL/L (135-145); TOTAL CARBON DIOXIDE 23.4 MMOL/L (24-32); TOTAL PROTEIN 7.1 G/DL (6.4-8.2); eGFR 30 ML/MIN
[2022-02-16 22:45] LABS: CLARITY,URINE CLEAR (Clear); COLOR,URINE YELLOW (Yellow); GLUCOSE, URINE NEGATIVE (Neg); KETONES,URINE NEGATIVE (Neg); LEUKOCYTE ESTERASE ,URINE NEGATIVE (Neg); NITRITES, URINE NEGATIVE (Neg); OCCULT BLOOD,URINE NEGATIVE (Neg); PH,URINE 5.5 (4.8-8.0); PROTEIN,URINE TRACE mg/dl (Neg); UROBILINOGEN,URINE 0.2 E.U/dL (0.2-1.0)
[2022-02-16 22:50] LABS: BACTERIA,URINE 1+ /HPF (Neg); RBC,URINE 0-2 /HPF (0-2); SQUAMOUS EPITHELIAL CELL,UR MANY /LPF (FEW); UA COLLECTION TYPE NON-SPECIFIED; WBC,URINE 0-4 /HPF (0-4)
[2022-02-16 22:51] LABS: MUCUS STRANDS MODERATE /LPF (Neg)
[2022-02-17] MEDS ORDERED: CefTRIAXone/D5W-Rocephin 1gm 50 ML IV ONE (00:25)
--- NOTE | 2022-02-17 04:32 | NUR ---
PT AWOKE CONFUSED AND PULLED HIS IV ACCESS OUT. PT REORIENTED AND RESTING IN BED.
[2022-02-17] MEDS ORDERED: HYDROcodone/acetaminophen 5mg/325mg tablet PO PRN (06:00)
[2022-02-17] MEDS ORDERED: magnesium Cl slow-release 64mg tablet PO PRN (06:00)
[2022-02-17] MEDS ORDERED: ondansetron/PF 4mg/2ml inj IV PRN (06:00)
[2022-02-17] MEDS ORDERED: potassium Cl 40MEQ/1/2NS 520ml 520 ML IV PRN (06:00)
[2022-02-17] MEDS ORDERED: potassium Cl 20 mEq SR tablet PO PRN ×2 (06:00)
[2022-02-17] MEDS ORDERED: morphine 2 MG/ML inj. syringe IV PRN (06:00)
[2022-02-17] MEDS ORDERED: magnesium 4gm in 100ml NS 100 ML IV PRN (06:00)
[2022-02-17] MEDS ORDERED: acetaminophen 325mg tablet PO PRN ×2 (06:00)
[2022-02-17] MEDS: normal saline 1000ml 1,000 ML IV SCH ×2 (06:56→10:03)
[2022-02-17] MEDS ORDERED: heparin, porcine 5000 units/ml vial SQ SCH (08:00)
[2022-02-17] MEDS ORDERED: docusate sod 100mg capsule PO SCH (08:00)
[2022-02-17] MEDS ORDERED: K and/or MAG REPLACEMENT MC SCH (08:00)
[2022-02-17] MEDS ORDERED: CefTRIAXone 2gm/D5W 50ml BAG 50 ML IV SCH (08:00)
[2022-02-17 12:43] LABS: BASOPHILS # (AUTO) 0.1 X10'3 (0-0.2); BASOPHILS % (AUTO) 0.7 % (0-1); EOSINOPHILS # (AUTO) 0.2 X10'3 (0-0.9); EOSINOPHILS % (AUTO) 2.2 % (0-6); HEMATOCRIT 38.5 % (42.0-52.0); HEMOGLOBIN 12.6 g/dl (14.0-17.9); LYMPHOCYTES # (AUTO) 1.3 X10'3 (1.1-4.8); LYMPHOCYTES % (AUTO) 13.1 % (21-51); MEAN CORPUSCULAR HEMOGLOBIN 27.9 PG (27.0-31.0); MEAN CORPUSCULAR HGB CONC 32.7 g/dL (33.0-36.5); MEAN CORPUSCULAR VOLUME 85.3 FL (78-98); MEAN PLATELET VOLUME 7.5 FL (7.4-10.4); MONOCYTES # (AUTO) 0.7 X10'3 (0-0.9); MONOCYTES % (AUTO) 7.7 % (2-12); NEUTROPHILS # (AUTO) 7.4 X10'3 (1.8-7.7); NEUTROPHILS % (AUTO) 76.3 % (42-75); PLATELET COUNT 240 X10'3 (140-440); RED BLOOD COUNT 4.51 X10'6 (4.70-6.10); RED CELL DISTRIBUTION WIDTH 17.7 % (11.5-14.5); WHITE BLOOD COUNT 9.7 X10'3 (4.5-11.0)
[2022-02-17 12:55] LABS: ALANINE AMINOTRANSFERASE 19 U/L (12-78); ALBUMIN 3.1 G/DL (3.4-5.0); ALBUMIN/GLOBULIN RATIO 0.9 (1.1-1.5); ALKALINE PHOSPHATASE 89 IU/L (46-116); ANION GAP 11 (8-16); ASPARTATE AMINO TRANSFERASE 18 U/L (10-37); BILIRUBIN,TOTAL 0.4 MG/DL (0.1-1.0); BLOOD UREA NITROGEN 47 MG/DL (7-18); BUN/CREATININE RATIO 25.4 (5.4-32.0); CALCIUM 8.5 MG/DL (8.5-10.1); CHLORIDE 106 MMOL/L (99-107); CREATININE 1.85 MG/DL (0.60-1.10); GLUCOSE 120 MG/DL (70-104); POTASSIUM 4.3 MMOL/L (3.5-5.1); SODIUM 140 MMOL/L (135-145); TOTAL PROTEIN 6.5 G/DL (6.4-8.2); eGFR 36 ML/MIN
--- NOTE | 2022-02-17 13:40 | NUR ---
Sarah from [facility] called and informed about pt's status and d/c instructions.
[2022-02-17 13:44] LABS: TOTAL CELLS COUNTED 100
[2022-02-17 13:45] LABS: ANISOCYTOSIS 1+; PLATELET ESTIMATE NORMAL
[2022-02-17] MEDS ORDERED: LISI2.5T14 PO (13:59)
[2022-02-17] MEDS ORDERED: AMIO200T27 PO (13:59)
[2022-02-17 15:40] VITALS: BP 116/67
[2022-02-17] MEDS ORDERED: temazepam 15mg capsule PO PRN (21:00)
== END 2022-02-17 16:29 ==
LOC: ER 16:53 → ED HOLD 02-17 06:14 → EDBEDREQ 02-17 06:27 → EDBEDREQTM 02-17 06:27
PROVIDERS: ADMIT Internal Medicine; ATTEND Family Medicine
DX: I95.9 Hypotension, unspecified (principal); I13.0 Hypertensive heart and chronic kidney disease with heart failure and stage 1 through stage 4 chronic kidney disease, or unspecified chronic kidney disease; I50.22 Chronic systolic (congestive) heart failure; N18.30 Chronic kidney disease, stage 3 unspecified; N17.9 Acute kidney failure, unspecified; G25.3 Myoclonus; I48.20 Chronic atrial fibrillation, unspecified; J18.9 Pneumonia, unspecified organism; G20 Parkinson's disease; E03.9 Hypothyroidism, unspecified; E78.00 Pure hypercholesterolemia, unspecified; E86.0 Dehydration; F02.A0 Dementia in other diseases classified elsewhere, mild, without behavioral disturbance, psychotic disturbance, mood disturbance, and anxiety; I25.10 Atherosclerotic heart disease of native coronary artery without angina pectoris; E66.01 Morbid (severe) obesity due to excess calories; I25.2 Old myocardial infarction; J44.0 Chronic obstructive pulmonary disease with (acute) lower respiratory infection; Z79.01 Long term (current) use of anticoagulants; Z79.51 Long term (current) use of inhaled steroids; Z79.899 Other long term (current) drug therapy; Z86.73 Personal history of transient ischemic attack (TIA), and cerebral infarction without residual deficits; Z86.74 Personal history of sudden cardiac arrest; Z87.442 Personal history of urinary calculi; Z95.1 Presence of aortocoronary bypass graft
CPT/HCPCS: 36415; 71045; 80053; 81001; 82140; 83605; 84484; 85007; 85025; 87040; 96365; 96366; 96372; 99284; G0378; J0696; J1644; J7030; 96361; 99285

== ENCOUNTER 2022-03-21 04:51 | Emergency (ER) | payer OTHER, MEDICARE ==
[~2022-03-21] VITALS: Ht 172.7 cm; Wt 100.0 kg
[~2022-03-21 04:51] MED LIST changes: -CARB1DRO18 OP; +LISI2.5T14 PO; -LISI20TA28 PO
[2022-03-21 06:18] LABS: BASOPHILS % (AUTO) 0.4 % (0-1); EOSINOPHILS # (AUTO) 0.3 X10'3 (0-0.9); EOSINOPHILS % (AUTO) 3.4 % (0-6); HEMATOCRIT 38.7 % (42.0-52.0); HEMOGLOBIN 12.8 g/dl (14.0-17.9); LYMPHOCYTES # (AUTO) 1.8 X10'3 (1.1-4.8); LYMPHOCYTES % (AUTO) 22.5 % (21-51); MEAN CORPUSCULAR HEMOGLOBIN 28.6 PG (27.0-31.0); MEAN CORPUSCULAR HGB CONC 32.9 g/dL (33.0-36.5); MEAN CORPUSCULAR VOLUME 86.9 FL (78-98); MEAN PLATELET VOLUME 7.9 FL (7.4-10.4); MONOCYTES # (AUTO) 0.7 X10'3 (0-0.9); MONOCYTES % (AUTO) 8.4 % (2-12); NEUTROPHILS # (AUTO) 5.3 X10'3 (1.8-7.7); NEUTROPHILS % (AUTO) 65.3 % (42-75); PLATELET COUNT 184 X10'3 (140-440); RED BLOOD COUNT 4.46 X10'6 (4.70-6.10); RED CELL DISTRIBUTION WIDTH 18.2 % (11.5-14.5)
[2022-03-21 06:23] LABS: ALANINE AMINOTRANSFERASE 32 U/L (12-78); ALBUMIN 3.4 G/DL (3.4-5.0); ALBUMIN/GLOBULIN RATIO 1.2 (1.1-1.5); ALKALINE PHOSPHATASE 82 IU/L (46-116); ANION GAP 10 (8-16); ASPARTATE AMINO TRANSFERASE 25 U/L (10-37); BILIRUBIN,TOTAL 0.7 MG/DL (0.1-1.0); BLOOD UREA NITROGEN 18 MG/DL (7-18); BUN/CREATININE RATIO 13.5 (5.4-32.0); CALCIUM 8.6 MG/DL (8.5-10.1); CHLORIDE 103 MMOL/L (99-107); CREATININE 1.33 MG/DL (0.60-1.10); GLUCOSE 95 MG/DL (70-104); MAGNESIUM 2.1 MG/DL (1.5-2.4); POTASSIUM 3.9 MMOL/L (3.5-5.1); SODIUM 137 MMOL/L (135-145); TOTAL CARBON DIOXIDE 24.1 MMOL/L (24-32); TOTAL PROTEIN 6.3 G/DL (6.4-8.2); eGFR 52 ML/MIN
[2022-03-21] MEDS ORDERED: LORazepam 2 mg/ml vial IV ONE (06:40)
[2022-03-21] MEDS ORDERED: TAM75C PO (08:30)
--- NOTE | 2022-03-21 10:29 | NUR ---
talked to daughter on the phone, daughter will meet pt at the rehab
[2022-03-21 11:21] VITALS: BP 146/75
[2022-03-25 05:09] LABS: LEVETIRACETAM, S 25.3 ug/mL (10.0-40.0)
[2022-03-26 05:14] LABS: LAMOTRIGINE, SERUM 11.1 ug/mL (2.0-20.0)
== END 2022-03-21 11:24 | disposition home or self-care (01) ==
LOC: ER 04:51
DX: J10.1 Influenza due to other identified influenza virus with other respiratory manifestations (principal); Z20.822 Contact with and (suspected) exposure to COVID-19; R25.1 Tremor, unspecified; J44.9 Chronic obstructive pulmonary disease, unspecified; K21.9 Gastro-esophageal reflux disease without esophagitis; I13.2 Hypertensive heart and chronic kidney disease with heart failure and with stage 5 chronic kidney disease, or end stage renal disease; E11.22 Type 2 diabetes mellitus with diabetic chronic kidney disease; N18.6 End stage renal disease; I50.9 Heart failure, unspecified; E03.9 Hypothyroidism, unspecified; F41.9 Anxiety disorder, unspecified; E78.00 Pure hypercholesterolemia, unspecified; Z98.890 Other specified postprocedural states; Z90.49 Acquired absence of other specified parts of digestive tract; Z88.8 Allergy status to other drugs, medicaments and biological substances; Z79.899 Other long term (current) drug therapy; Z79.1 Long term (current) use of non-steroidal anti-inflammatories (NSAID); Z79.82 Long term (current) use of aspirin; Z79.2 Long term (current) use of antibiotics
CPT/HCPCS: 36415; 71045; 80053; 80177; 82542; 83735; 84443; 85025; 87040; 87502; 87503; 87635; 93005; 96374; 99285; C9803; J2060

== ENCOUNTER 2022-05-09 13:07 | Emergency (ER) | payer OTHER, MEDICARE ==
[~2022-05-09] VITALS: Ht 182.9 cm; Wt 96.8 kg
[2022-05-09] MEDS ORDERED: normal saline 1000ML IV soln IVB ONE (13:15)
[2022-05-09 13:25] LABS: ABG BASE EXCESS -1.1 mmol/L (-2.0-2.0); ABG HCO3 23.1 mmol/L (22.0-26.0); ABG OXYGEN SATURATION 97.1 % (94-97); ABG PCO2 (T) 36.7 mmHg (35.0-48.0); ABG PO2 (T) 93.5 mmHg (75.0-100.0); ALLEN'S TEST POSITIVE; FCOHb 0.4 % (0.0-3.9); FLOW 2 L/min; FMetHb 0.3 % (0.0-1.5); FO2Hb 96.4 % (94-97); TOTAL HEMOGLOBIN 13.6 G/dl (14.0-17.9)
[2022-05-09 14:05] LABS: BASOPHILS # (AUTO) 0.1 X10'3 (0-0.2); BASOPHILS % (AUTO) 0.6 % (0-1); EOSINOPHILS # (AUTO) 0.2 X10'3 (0-0.9); EOSINOPHILS % (AUTO) 2.3 % (0-6); HEMATOCRIT 35.4 % (42.0-52.0); HEMOGLOBIN 11.6 g/dl (14.0-17.9); LYMPHOCYTES # (AUTO) 1.6 X10'3 (1.1-4.8); LYMPHOCYTES % (AUTO) 16.8 % (21-51); MEAN CORPUSCULAR HEMOGLOBIN 28.7 PG (27.0-31.0); MEAN CORPUSCULAR HGB CONC 32.7 g/dL (33.0-36.5); MEAN CORPUSCULAR VOLUME 87.5 FL (78-98); MEAN PLATELET VOLUME 7.4 FL (7.4-10.4); MONOCYTES # (AUTO) 0.8 X10'3 (0-0.9); MONOCYTES % (AUTO) 8.3 % (2-12); NEUTROPHILS # (AUTO) 6.9 X10'3 (1.8-7.7); PLATELET COUNT 195 X10'3 (140-440); RED BLOOD COUNT 4.04 X10'6 (4.70-6.10); RED CELL DISTRIBUTION WIDTH 17.3 % (11.5-14.5); WHITE BLOOD COUNT 9.6 X10'3 (4.5-11.0)
[2022-05-09 15:02] LABS: ALANINE AMINOTRANSFERASE 25 U/L (12-78); ALBUMIN 3.4 G/DL (3.4-5.0); ALBUMIN/GLOBULIN RATIO 0.9 (1.1-1.5); ALKALINE PHOSPHATASE 110 IU/L (46-116); ANION GAP 7 (8-16); ASPARTATE AMINO TRANSFERASE 18 U/L (10-37); BILIRUBIN,TOTAL 0.6 MG/DL (0.1-1.0); BLOOD UREA NITROGEN 20 MG/DL (7-18); BUN/CREATININE RATIO 18.3 (5.4-32.0); CALCIUM 9.2 MG/DL (8.5-10.1); CHLORIDE 107 MMOL/L (99-107); CREATININE 1.09 MG/DL (0.60-1.10); GLUCOSE 111 MG/DL (70-104); POTASSIUM 4.5 MMOL/L (3.5-5.1); SODIUM 141 MMOL/L (135-145); TOTAL CARBON DIOXIDE 26.7 MMOL/L (24-32); eGFR 65 ML/MIN
[2022-05-09 15:04] LABS: ETHANOL < 0.010 GM/DL (0.0-0.010)
[2022-05-09 15:08] LABS: CLARITY,URINE CLEAR (Clear); COLOR,URINE YELLOW (Yellow); GLUCOSE, URINE NEGATIVE (Neg); KETONES,URINE NEGATIVE (Neg); LEUKOCYTE ESTERASE ,URINE NEGATIVE (Neg); NITRITES, URINE NEGATIVE (Neg); OCCULT BLOOD,URINE NEGATIVE (Neg); PROTEIN,URINE 30 mg/dl (Neg); UROBILINOGEN,URINE 0.2 E.U/dL (0.2-1.0)
[2022-05-09 15:16] LABS: UA COLLECTION TYPE NON-SPECIFIED
[2022-05-09] MEDS ORDERED: levetiracetam inj 1,000 MG in normal saline 100ml IV soln 90 ML IV STA (15:24)
[2022-05-09] MEDS ORDERED: levetiracetam inj 1,000 MG in normal saline 100ml IV soln 100 ML IV STA (15:26)
[2022-05-09 15:27] LABS: BACTERIA,URINE NONE SEEN /HPF (Neg); MUCUS STRANDS NONE SEEN /LPF (Neg); SQUAMOUS EPITHELIAL CELL,UR FEW /LPF (FEW); WBC,URINE NONE SEEN /HPF (0-4)
[2022-05-09 15:28] LABS: RBC,URINE 0-2 /HPF (0-2)
[2022-05-09] MEDS ORDERED: ALBU0.63 NEB (15:39)
[2022-05-09] MEDS ORDERED: SERT50TA PO (15:39)
[2022-05-09] MEDS ORDERED: AMIO200T61 PO (15:39)
[2022-05-09] MEDS ORDERED: APIX5TAB3 PO (15:39)
[2022-05-09] MEDS ORDERED: LAMO150T2 PO (15:39)
[2022-05-09] MEDS ORDERED: ATOR40TA PO (15:39)
[2022-05-09] MEDS ORDERED: LEVE10002 PO (15:39)
[2022-05-09] MEDS ORDERED: LISI5TAB22 PO (15:39)
[2022-05-09] MEDS ORDERED: ISOS30TA9 PO (15:39)
[2022-05-09] MEDS ORDERED: PROP20TA6 PO (15:39)
[2022-05-09] MEDS ORDERED: MEMA5TAB PO (15:39)
[2022-05-09] MEDS ORDERED: LEVO75CA5 PO (15:39)
--- NOTE | 2022-05-09 16:07 | NUR ---
pt's son will be picking up pt med.
--- NOTE | 2022-05-09 16:53 | NUR ---
[facility] NOTIFIED PT NEEDS A RIDE BACK TO FACILITY. THEY REPORT TRANSPORT WILL BE HERE IN 25 MINUTES.
[2022-05-09 17:17] VITALS: BP 165/83
== END 2022-05-09 17:20 | disposition home or self-care (01) ==
LOC: ER 13:08
DX: R41.82 Altered mental status, unspecified (principal); R53.1 Weakness; E78.00 Pure hypercholesterolemia, unspecified; J44.9 Chronic obstructive pulmonary disease, unspecified; K21.9 Gastro-esophageal reflux disease without esophagitis; I13.0 Hypertensive heart and chronic kidney disease with heart failure and stage 1 through stage 4 chronic kidney disease, or unspecified chronic kidney disease; E09.22 Drug or chemical induced diabetes mellitus with diabetic chronic kidney disease; N18.9 Chronic kidney disease, unspecified; E03.9 Hypothyroidism, unspecified; Z87.442 Personal history of urinary calculi; Z88.8 Allergy status to other drugs, medicaments and biological substances; Z79.899 Other long term (current) drug therapy; Z79.82 Long term (current) use of aspirin; Z79.1 Long term (current) use of non-steroidal anti-inflammatories (NSAID); Z79.2 Long term (current) use of antibiotics
CPT/HCPCS: 36415; 36600; 70450; 71045; 80053; 80320; 81001; 82140; 82803; 82948; 83605; 84484; 85018; 85025; 87040; 93005; 96361; 96365; 99285; J1953; J3490; J7030

== ENCOUNTER 2022-06-01 12:48 | Emergency (ER) | payer OTHER, MEDICARE ==
[~2022-06-01] VITALS: Ht 180.3 cm; Wt 95.0 kg
[~2022-06-01 12:48] MED LIST changes: +ALBU0.63 NEB; +AMIO200T61 PO; +ATOR40TA PO; +LAMO150T2 PO; +LEVE10002 PO; +LEVO75CA5 PO; +LISI5TAB22 PO; +PROP20TA6 PO; +SERT50TA PO
[2022-06-01 15:01] LABS: BASOPHILS # (AUTO) 0.1 X10'3 (0-0.2); BASOPHILS % (AUTO) 0.5 % (0-1); EOSINOPHILS # (AUTO) 0.2 X10'3 (0-0.9); EOSINOPHILS % (AUTO) 2.3 % (0-6); HEMATOCRIT 38.2 % (42.0-52.0); HEMOGLOBIN 12.7 g/dl (14.0-17.9); LYMPHOCYTES # (AUTO) 1.8 X10'3 (1.1-4.8); LYMPHOCYTES % (AUTO) 17.5 % (21-51); MEAN CORPUSCULAR HEMOGLOBIN 29.2 PG (27.0-31.0); MEAN CORPUSCULAR HGB CONC 33.3 g/dL (33.0-36.5); MEAN CORPUSCULAR VOLUME 87.6 FL (78-98); MEAN PLATELET VOLUME 7.4 FL (7.4-10.4); MONOCYTES # (AUTO) 0.8 X10'3 (0-0.9); MONOCYTES % (AUTO) 8.1 % (2-12); NEUTROPHILS # (AUTO) 7.3 X10'3 (1.8-7.7); NEUTROPHILS % (AUTO) 71.6 % (42-75); PLATELET COUNT 205 X10'3 (140-440); RED BLOOD COUNT 4.36 X10'6 (4.70-6.10); RED CELL DISTRIBUTION WIDTH 17.2 % (11.5-14.5); WHITE BLOOD COUNT 10.3 X10'3 (4.5-11.0)
[2022-06-01 15:11] LABS: ALANINE AMINOTRANSFERASE 23 U/L (12-78); ALBUMIN 3.6 G/DL (3.4-5.0); ALKALINE PHOSPHATASE 104 IU/L (46-116); ANION GAP 7 (8-16); ASPARTATE AMINO TRANSFERASE 16 U/L (10-37); BILIRUBIN,TOTAL 0.6 MG/DL (0.1-1.0); BLOOD UREA NITROGEN 22 MG/DL (7-18); BUN/CREATININE RATIO 17.7 (5.4-32.0); CALCIUM 8.9 MG/DL (8.5-10.1); CHLORIDE 107 MMOL/L (99-107); CREATININE 1.24 MG/DL (0.60-1.10); GLUCOSE 104 MG/DL (70-104); POTASSIUM 4.8 MMOL/L (3.5-5.1); SODIUM 143 MMOL/L (135-145); TOTAL PROTEIN 7.1 G/DL (6.4-8.2); eGFR 56 ML/MIN
[2022-06-01 15:32] VITALS: BP 159/80
--- NOTE | 2022-06-01 17:00 | NUR ---
pt has removed monitoring equipment. is demanding to leave and giving time limits on when things need to happen. pt educated on ER process and he appologizes for his behavior. he is aware he is being d\c'd and happy to be returning to his facility. daughter is aware of pts condition and disposition. spoke with staff member from facility and provided update and discussed what was done and the results. pt back via [employer]
== END 2022-06-01 17:32 ==
LOC: ER 12:48
DX: R53.1 Weakness (principal); R06.02 Shortness of breath; I13.0 Hypertensive heart and chronic kidney disease with heart failure and stage 1 through stage 4 chronic kidney disease, or unspecified chronic kidney disease; I50.9 Heart failure, unspecified; N18.9 Chronic kidney disease, unspecified; E78.00 Pure hypercholesterolemia, unspecified; J44.9 Chronic obstructive pulmonary disease, unspecified; K21.9 Gastro-esophageal reflux disease without esophagitis; E03.9 Hypothyroidism, unspecified; Z88.8 Allergy status to other drugs, medicaments and biological substances
CPT/HCPCS: 36415; 71045; 80053; 83880; 84484; 85025; 93005; 99285